=== PATIENT | female | born 1955 | race Caucasian/White ===

== ENCOUNTER 2018-03-10 14:30 | Inpatient (IN) | payer MEDICARE, MEDICAID, SELFPAY ==
[2018-03-10 14:47] VITALS: BMI 31.4
[2018-03-10 14:59] VITALS: BMI 31.5
--- NOTE | 2018-03-10 15:39 | PCM.CONS.GEN ---
Reason for Consult Date of Consultation: 03/10/18 Reason for Consultation: Left subtrochanteric femur fracture. Requested by Dr Mclain History of Present Illness: The patient is a 62 year old F with history of stage IV lung cancer with metastatic disease confirmed to the bone and brain. She is undergoing chemotherapy currently in [place] where her oncologist is at [facility]. Patient is a chronic smoker for the last 40-50 years smokes half to 1 pack a day. Patient states when she was getting off the toilet last evening she had a sudden increase in pain in her thigh. She could no longer stand on it. She tried to sleep it off however she did not have any significant relief of the pain. Patient presents right now with 10 out of 10 pain in the thigh better with immobilization and bed rest worse with motion. Patient reports throbbing pain in the thigh. There is associated swelling and ecchymosis. No numbness and tingling of the leg. She cannot move the leg. She is a very poor historian and the medicine team is working on obtaining further medical records to complete her care here. Patient reports that she regularly ambulates with a cane and occasionally a walker. Past Medical History Allergies No Known Allergies Allergy (Verified 10/05/17 15:21) Home Medications: Ambulatory Orders Medication Instructions Recorded albuterol sulfate HFA 90 1 inh INHALATION DAILY 10/05/17 mcg/actuation aerosol inhaler diclofenac sodium 75 mg 75 mg PO BID 10/05/17 tablet,delayed release gabapentin 100 mg capsule 100 mg PO QHS 10/05/17 multivitamin tablet 1 tab PO DAILY 10/05/17 pravastatin 40 mg tablet 40 mg PO QHS 10/05/17 Surgical History: hysterectomy, - - breast lump removal Psychiatric History: - - Patient appears to have some dementia and memory problems likely secondary to metastatic 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 Denies: Chills HEENT: Reports: Difficulty Hearing Cardiovascular: Denies: Chest Pain Respiratory: Reports: Cough, Shortness of breath at rest. Denies: Sputum production Gastrointestinal: Denies: Abdominal Pain, Nausea, Vomiting Genitourinary: Denies: Dysuria Musculoskeletal: Reports: Joint Tenderness, Leg Pain - See HPI Skin: Reports: Dryness Neurological: Denies: Numbness, Tingling Psychiatric: Denies: Anxiety Hematologic/ Lymphatic: Denies: Adenopathy Objective: Left hip x-rays show a subtrochanteric femur fracture with a lytic lesion noted at the site of the fracture - Physical Exam General: Alert, Oriented x3, Cooperative, - - Cachectic appearing female HEENT: Atraumatic Extremities: - - Left lower extremity: Thigh is swollen and ecchymotic. There is noted deformity. Patient demonstrates motor intact dorsiflexion EHL and plantar flexion. Palpable DP pulse. Sensations intact light touch SP/DP/tibial/sural/saphenous nerve distributions. Positive logroll. Pain with range of motion of the leg. Weight: 145 lb 8.081 oz Body Mass Index (BMI) 31.4 Assessment/Plan Left metastatic subtrochanteric femur fracture transverse in nature. 1. Treatment options were discussed with the patient and her family. At this time we discussed cephalo-medullary nail fixation versus nonoperative treatment. Patient states he has 6 months life expectancy. At this time we did recommend surgical stabilization of the subtrochanteric femur fracture for palliative and stabilization reasons. I did discuss with the family certain risks are inherent with surgery including but not limited to blood loss, DVTs, PEs, neurovascular damage, infection, general risk of anesthesia including loss of life. We also discussed nonunion, malunion, hardware failure and re-fractures. Patient demonstrated understanding wishes to proceed with a cephalo-medullary nail. She is able to sign informed consent. 2. Patient is admitted to the medical service medical clearance will be obtained prior to surgery. Currently the plan is for surgery tomorrow afternoon. 3. N.p.o. after midnight 4. Hold DVT prophylaxis tomorrow morning [facility] Office:
--- NOTE | 2018-03-10 15:49 | CON.PCM_ITS ---
Reason for Consult Date of Consultation: 03/10/18 Reason for Consultation: Left subtrochanteric femur fracture. Requested by Dr Mclain History of Present Illness: The patient is a 62 year old F with history of stage IV lung cancer with metastatic disease confirmed to the bone and brain. She is undergoing chemotherapy currently in [place] where her oncologist is at [facility]. Patient is a chronic smoker for the last 40-50 years smokes half to 1 pack a day. Patient states when she was getting off the toilet last evening she had a sudden increase in pain in her thigh. She could no longer stand on it. She tried to sleep it off however she did not have any significant relief of the pain. Patient presents right now with 10 out of 10 pain in the thigh better with immobilization and bed rest worse with motion. Patient reports throbbing pain in the thigh. There is associated swelling and ecchymosis. No numbness and tingling of the leg. She cannot move the leg. She is a very poor historian and the medicine team is working on obtaining further medical records to complete her care here. Patient reports that she regularly ambulates with a cane and occasionally a walker. Past Medical History Allergies No Known Allergies Allergy (Verified 10/05/17 15:21) Home Medications: Ambulatory Orders Medication Instructions Recorded albuterol sulfate HFA 90 1 inh INHALATION DAILY 10/05/17 mcg/actuation aerosol inhaler diclofenac sodium 75 mg 75 mg PO BID 10/05/17 tablet,delayed release gabapentin 100 mg capsule 100 mg PO QHS 10/05/17 multivitamin tablet 1 tab PO DAILY 10/05/17 pravastatin 40 mg tablet 40 mg PO QHS 10/05/17 Surgical History: hysterectomy, - - breast lump removal Psychiatric History: - - Patient appears to have some dementia and memory problems likely secondary to 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 Denies: Chills HEENT: Reports: Difficulty Hearing Cardiovascular: Denies: Chest Pain Respiratory: Reports: Cough, Shortness of breath at rest. Denies: Sputum production Gastrointestinal: Denies: Abdominal Pain, Nausea, Vomiting Genitourinary: Denies: Dysuria Musculoskeletal: Reports: Joint Tenderness, Leg Pain - See HPI Skin: Reports: Dryness Neurological: Denies: Numbness, Tingling Psychiatric: Denies: Anxiety Hematologic/ Lymphatic: Denies: Adenopathy Objective: Left hip x-rays show a subtrochanteric femur fracture with a lytic lesion noted at the site of the fracture - Physical Exam General: Alert, Oriented x3, Cooperative, - - Cachectic appearing female HEENT: Atraumatic Extremities: - - Left lower extremity: Thigh is swollen and ecchymotic. There is noted deformity. Patient demonstrates motor intact dorsiflexion EHL and plantar flexion. Palpable DP pulse. Sensations intact light touch SP/DP/tibial /sural/saphenous nerve distributions. Positive logroll. Pain with range of motion of the leg. Weight: 145 lb 8.081 oz Body Mass Index (BMI) 31.4 Assessment/Plan Left metastatic subtrochanteric femur fracture transverse in nature. 1. Treatment options were discussed with the patient and her family. At this time we discussed cephalo-medullary nail fixation versus nonoperative treatment. Patient states he has 6 months life expectancy. At this time we did recommend surgical stabilization of the subtrochanteric femur fracture for palliative and stabilization reasons. I did discuss with the family certain risks are inherent with surgery including but not limited to blood loss, DVTs, PEs, neurovascular damage, infection, general risk of anesthesia including loss of life. We also discussed nonunion, malunion, hardware failure and re- fractures. Patient demonstrated understanding wishes to proceed with a cephalo- medullary nail. She is able to sign informed consent. 2. Patient is admitted to the medical service medical clearance will be obtained prior to surgery. Currently the plan is for surgery tomorrow afternoon. 3. N.p.o. after midnight 4. Hold DVT prophylaxis tomorrow morning [facility] Office:
--- NOTE | 2018-03-10 16:03 | PCA ---
Sent dottie chavez a request for medical records
[2018-03-10 16:14] VITALS: RESP 20
--- NOTE | 2018-03-10 16:22 | PCM.HP.STD ---
<Felix Martinez - Last Filed: 03/10/18 16:22> Problem List (1) Hip fracture Status: Acute (2) Lung cancer Status: Chronic History of Present Illness Date of Admission: 03/10/18 Chief Complaint: left hip pain The patient is a 62 year old F with a hx of lung cancer stage IV currently on chemo last dose 4 days ago with mets to the brain s/p brain radiation, bone, and kidney mets who presents to the hospital from [place] [facility] with a left hip fracture. This occurred last night. She was attempting to get out of the shower and as she turned she heard a bang and suddenly developed left hip pain 10/10 in severity. She denies falling or striking her leg. Her is debilitated so she waited until this morning to come to the ER as a friend could help her. She continues to have 10/10 pain even at rest without moving and has limited ROM of her left leg. Sensation is intact. She reportedly was given 6 months to live without treatment - this was diagnosed this past february. She currently cannot remember her doctors' names or what medical problems she has or what meds she takes. She receives chemo at [facility]. She is on O2 but not complaining of dyspnea - she does not use O2 at home. She has a dry cough. Up to this point she ambulated with a walker at home. [] Past Medical History Past Medical History (Chronic Problems): Chronic Problems (Last Updated 10/05/17 @ 15:27 by Yamilex Maldonado) Lung cancer (Chronic) Hx of hysterectomy (Chronic) History of lumpectomy of right breast (Chronic) Insomnia (Chronic) Peripheral neuropathy (Chronic) Benign neoplasm of left breast (Chronic) Osteoarthritis (Chronic) Allergies No Known Allergies Allergy (Verified 10/05/17 15:21) Home Medications: Ambulatory Orders Medication Instructions Recorded albuterol sulfate HFA 90 1 inh INHALATION DAILY 10/05/17 mcg/actuation aerosol inhaler diclofenac sodium 75 mg 75 mg PO BID 10/05/17 tablet,delayed release gabapentin 100 mg capsule 100 mg PO QHS 10/05/17 multivitamin tablet 1 tab PO DAILY 10/05/17 pravastatin 40 mg tablet 40 mg PO QHS 10/05/17 Surgical History: hysterectomy, - - breast lump removal Psychiatric History: - - Patient appears to have some dementia and memory problems likely secondary to metastatic 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 cancer 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: Spouse/ Significant Other Smoking Status: Current every day smoker Tobacco Use: Cigarettes Alcohol: Occasional Drugs: None - *Family History Maternal History Items: No pertinent history Paternal History Items: No pertinent history Review of Systems Constitutional: Denies: Chills, Fever, Weight Change HEENT: Denies: Head Aches, Sinus Congestion, Sinus Drainage Cardiovascular: Denies: Chest Pain, Palpitations Respiratory: Denies: Cough, Shortness of breath at rest, Sputum production Gastrointestinal: Denies: Abdominal Pain, Nausea, Vomiting Genitourinary: Denies: Dysuria Musculoskeletal: Reports: - - left hip pain 08/12. Denies: Joint Pain, Joint Tenderness Skin: Denies: Rash, Wounds Neurological: Denies: Numbness, Tingling, Focal weakness Psychiatric: Denies: Anxiety, Depression, Homicidal Ideations, Suicidal Ideations Hematologic/ Lymphatic: Denies: Easy Bruising, Easy Bleeding VTE Information - Inpt Only VTE Present on Admission: No VTE Mechan Device Prophylaxis: SCD's VTE Pharm Prophylaxis ordered?: No Reason prophylaxis not ordered:: Medical Contraindication Patient Problems: Active and Suspected Problems (Last Updated 10/05/17 @ 15:27 by Yamilex Maldonado) Hip fracture (Acute) Femur fracture, left (Acute) - Physical Exam General: Alert, Oriented x3, Cooperative, - - cachectic, appears older than stated age. HEENT: Atraumatic, PERRLA, EOMI, Normocephalic Neck: Supple, No JVD, Negative Carotid Bruits Lungs: Clear to auscultation, Normal air movement Cardiovascular: Regular rate, No murmurs Abdomen: Bowel Sounds Present, Soft, Non Tender Extremities: No edema, Capillary Refill Less than 3 Seconds Skin: No rashes, No breakdown Musculoskeletal: No Tenderness to Palpation of Joints or Extremities, - - swelling left hip. limited rom LLE 2/2 pain. Sensation intact. Neurological: Cranial nerves II-XII grossly intact Psych/Mental Status: Normal Affect, Appropriate, Alert and oriented to time, place, person, mood and affect Weight: 66 kg Body Mass Index (BMI) 31.4 Assessment/Plan Active and Suspected Problems (Last Updated 10/05/17 @ 15:27 by Yamilex Maldonado) Hip fracture (Acute) Femur fracture, left (Acute) 1. Left subtrochanteric femur fracture in abscence of trauma in pt with known mets to bone - suspect pathologic. Dr. Munroe to take patient to surgery with possible bx. She will require PTOT and custodial after surgery. 2. Stage IV lung ca with mets to brain, bone, kidney. Check AM labs. Get records from [facility]. Pt cannot remember who her oncologist is. Last chemo last 4 days ago. Prior brain rads. Dx was made in february this year. Prognosis is very poor. 3. Nicotine abuse - 40-50 years. still smokes 1/2-1ppd ppd. Aerosols, O2 prn. IS. 4. Pt otherwise not able to remember her medical hx. Request made for records to be obtained. DVT ppx: SCDs DC planning: SNF This patient was seen by Felix Martinez PA-C under the supervision of Doctor Aileen. <Linwood Gallagher - Last Filed: 03/10/18 17:19> Problem List (1) Femur fracture, left Status: Acute (2) Lung cancer Status: Chronic (3) Hx of hysterectomy Status: Chronic (4) History of lumpectomy of right breast Status: Chronic (5) Insomnia Status: Chronic (6) Peripheral neuropathy Status: Chronic (7) Benign neoplasm of left breast Status: Chronic (8) Osteoarthritis Status: Chronic History of Present Illness The patient is a 62 year old F who felt a pop when she got out of the shower. Patient presented to [facility] and was found to have a right femur fracture. Patient has stage IV lung cancer with brain metastases. Patient was just diagnosed with lung cancer 1 month ago today. Patient wants to do everything. Patient wants to have surgery. Patient was seen in consultation by Dr. Munroe and is planning on doing a stabilization procedure on the with an intramedullary guillaume. Concern for this fracture given that the mechanism of injury was none at this is likely a pathologic fracture. 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: Spouse/ Significant Other Smoking Status: Current every day smoker Tobacco Use: Cigarettes Alcohol: Occasional Drugs: None - *Family History Maternal History Items: - - No lung cancer Paternal History Items: - - No lung cancer Review of Systems Constitutional: Denies: Chills, Fever, Weight Change HEENT: Denies: Head Aches, Sinus Congestion, Sinus Drainage Cardiovascular: Denies: Chest Pain, Palpitations Respiratory: Denies: Cough, Shortness of breath at rest, Sputum production Gastrointestinal: Denies: Abdominal Pain, Nausea, Vomiting Genitourinary: Denies: Dysuria Musculoskeletal: Reports: -. Denies: Joint Pain, Joint Tenderness Skin: Denies: Rash, Wounds Neurological: Denies: Focal weakness, Numbness, Tingling Psychiatric: Denies: Anxiety, Depression, Homicidal Ideations, Suicidal Ideations Hematologic/ Lymphatic: Denies: Easy Bruising, Easy Bleeding VTE Information - Inpt Only VTE Present on Admission: No VTE Mechan Device Prophylaxis: SCD's VTE Pharm Prophylaxis ordered?: No Reason prophylaxis not ordered:: Medical Contraindication - Physical Exam General: Alert, Oriented x3, Cooperative, - HEENT: Atraumatic, PERRLA, EOMI, Normocephalic Neck: No JVD, Negative Hepatojugular Reflux Lungs: Clear to auscultation, Normal air movement, No rhonchi, No wheeze Cardiovascular: Regular rate, Regular Rhythm, Normal S1, Normal S2, No murmurs Abdomen: Bowel Sounds Present, Soft, Non Tender Extremities: No edema, No Calf Tenderness Skin: No rashes, No breakdown Musculoskeletal: No Tenderness to Palpation of Joints or Extremities, - Neurological: Cranial nerves II-XII grossly intact Psych/Mental Status: Normal Affect, Appropriate Vital Signs Temp Pulse Resp BP Pulse Ox 37.2 C 87 20 H 145/67 H 98 03/10/18 16:45 03/10/18 16:45 03/10/18 16:45 03/10/18 16:45 03/10/18 16:45 Oxygen Flow Rate (L/min) 2 Oxygen Delivery Method Nasal Cannula Weight: 66 kg Body Mass Index (BMI) 31.4 Assessment/Plan Pt seen and examined independently. Agree with the above note by the physician pediatric physical therapy assistant. 1. Left femur fracture: Mechanism of recurrences happen when the patient just moved her leg when getting out of the shower. There is no fall. This is likely a pathologic fracture. Patient seen in consultation by Dr. Munroe, plan is for intramedullary guillaume on the . Pain control in the meantime. Patient's grandson asked if there is anything else that could be done outside of surgery. I told him the only other option would be for hospice and the patient has expressed steadfastly that she wants to do everything. Patient states that she specifically wants to have the surgery as well. 2. Stage IV lung cancer: Unknown type but would favor small cell. His records are over at [facility]. Patient wishes to follow-up with her oncologist at [facility]. Patient has been given a prognosis of 6-12 months with treatment. Discussed with patient's [id number] and grandson at bedside. Patient overall has a poor prognosis given her stage IV lung cancer. The ORIF of her femur can serve as palliation to help her with pain and also mobility though patient will certainly will be limited afterwards. Advanced care planning: Discussed with the patient. Patient wishes to be full code. Code Visit Inpatient E&M: 45724 Init Hosp L3
--- NOTE | 2018-03-10 16:44 | HP.PCM_ITS ---
<Felix Martinez - Last Filed: 03/10/18 16:22> Problem List (1) Hip fracture Status: Acute (2) Lung cancer Status: Chronic History of Present Illness Date of Admission: 03/10/18 Chief Complaint: left hip pain The patient is a 62 year old F with a hx of lung cancer stage IV currently on chemo last dose 4 days ago with mets to the brain s/p brain radiation, bone, and kidney mets who presents to the hospital from [facility] with a left hip fracture. This occurred last night. She was attempting to get out of the shower and as she turned she heard a bang and suddenly developed left hip pain 10/10 in severity. She denies falling or striking her leg. Her is debilitated so she waited until this morning to come to the ER as a friend could help her. She continues to have 10/10 pain even at rest without moving and has limited ROM of her left leg. Sensation is intact. She reportedly was given 6 months to live without treatment - this was diagnosed this past february. She currently cannot remember her doctors' names or what medical problems she has or what meds she takes. She receives chemo at [facility]. She is on O2 but not complaining of dyspnea - she does not use O2 at home. She has a dry cough. Up to this point she ambulated with a walker at home. [] Past Medical History Past Medical History (Chronic Problems): Chronic Problems (Last Updated 10/05/17 @ 15:27 by Yamilex Maldonado) Lung cancer (Chronic) Hx of hysterectomy (Chronic) History of lumpectomy of right breast (Chronic) Insomnia (Chronic) Peripheral neuropathy (Chronic) Benign neoplasm of left breast (Chronic) Osteoarthritis (Chronic) Allergies No Known Allergies Allergy (Verified 10/05/17 15:21) Home Medications: Ambulatory Orders Medication Instructions Recorded albuterol sulfate HFA 90 1 inh INHALATION DAILY 10/05/17 mcg/actuation aerosol inhaler diclofenac sodium 75 mg 75 mg PO BID 10/05/17 tablet,delayed release gabapentin 100 mg capsule 100 mg PO QHS 10/05/17 multivitamin tablet 1 tab PO DAILY 10/05/17 pravastatin 40 mg tablet 40 mg PO QHS 10/05/17 Surgical History: hysterectomy, - - breast lump removal Psychiatric History: - - Patient appears to have some dementia and memory problems likely secondary to metastatic brain cancer [employer] FINISHER History: spontaneous Lives: Spouse/ Significant Other Smoking Status: Current every day smoker Tobacco Use: Cigarettes Alcohol: Occasional Drugs: None - *Family History Maternal History Items: No pertinent history Paternal History Items: No pertinent history Review of Systems Constitutional: Denies: Chills, Fever, Weight Change HEENT: Denies: Head Aches, Sinus Congestion, Sinus Drainage Cardiovascular: Denies: Chest Pain, Palpitations Respiratory: Denies: Cough, Shortness of breath at rest, Sputum production Gastrointestinal: Denies: Abdominal Pain, Nausea, Vomiting Genitourinary: Denies: Dysuria Musculoskeletal: Reports: - - left hip pain 08/12. Denies: Joint Pain, Joint Tenderness Skin: Denies: Rash, Wounds Neurological: Denies: Numbness, Tingling, Focal weakness Psychiatric: Denies: Anxiety, Depression, Homicidal Ideations, Suicidal Ideations Hematologic/ Lymphatic: Denies: Easy Bruising, Easy Bleeding VTE Information - Inpt Only VTE Present on Admission: No VTE Mechan Device Prophylaxis: SCD's VTE Pharm Prophylaxis ordered?: No Reason prophylaxis not ordered:: Medical Contraindication Patient Problems: Active and Suspected Problems (Last Updated 10/05/17 @ 15:27 by Yamilex Maldonado ) Hip fracture (Acute) Femur fracture, left (Acute) - Physical Exam General: Alert, Oriented x3, Cooperative, - - cachectic, appears older than stated age. HEENT: Atraumatic, PERRLA, EOMI, Normocephalic Neck: Supple, No JVD, Negative Carotid Bruits Lungs: Clear to auscultation, Normal air movement Cardiovascular: Regular rate, No murmurs Abdomen: Bowel Sounds Present, Soft, Non Tender Extremities: No edema, Capillary Refill Less than 3 Seconds Skin: No rashes, No breakdown Musculoskeletal: No Tenderness to Palpation of Joints or Extremities, - - swelling left hip. limited rom LLE 2/2 pain. Sensation intact. Neurological: Cranial nerves II-XII grossly intact Psych/Mental Status: Normal Affect, Appropriate, Alert and oriented to time, place, person, mood and affect Weight: 66 kg Body Mass Index (BMI) 31.4 Assessment/Plan Active and Suspected Problems (Last Updated 10/05/17 @ 15:27 by Yamilex Maldonado ) Hip fracture (Acute) Femur fracture, left (Acute) 1. Left subtrochanteric femur fracture in abscence of trauma in pt with known mets to bone - suspect pathologic. Dr. Munroe to take patient to surgery with possible bx. She will require PTOT and shelter after surgery. 2. Stage IV lung ca with mets to brain, bone, kidney. Check AM labs. Get records from [facility]. Pt cannot remember who her oncologist is. Last chemo last 4 days ago. Prior brain rads. Dx was made in february this year. Prognosis is very poor. 3. Nicotine abuse - 40-50 years. still smokes 1/2-1ppd ppd. Aerosols, O2 prn. IS. 4. Pt otherwise not able to remember her medical hx. Request made for records to be obtained. DVT ppx: SCDs DC planning: SNF This patient was seen by Felix Martinez PA-C under the supervision of Doctor Aileen. <Linwood Gallagher - Last Filed: 03/10/18 17:19> Problem List (1) Femur fracture, left Status: Acute (2) Lung cancer Status: Chronic (3) Hx of hysterectomy Status: Chronic (4) History of lumpectomy of right breast Status: Chronic (5) Insomnia Status: Chronic (6) Peripheral neuropathy Status: Chronic (7) Benign neoplasm of left breast Status: Chronic (8) Osteoarthritis Status: Chronic History of Present Illness The patient is a 62 year old F who felt a pop when she got out of the shower. Patient presented to [facility] and was found to have a right femur fracture. Patient has stage IV lung cancer with brain metastases. Patient was just diagnosed with lung cancer 1 month ago today. Patient wants to do everything. Patient wants to have surgery. Patient was seen in consultation by Dr. Munroe and is planning on doing a stabilization procedure on the with an intramedullary guillaume. Concern for this fracture given that the mechanism of injury was none at this is likely a pathologic fracture. 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 History: spontaneous Lives: Spouse/ Significant Other Smoking Status: Current every day smoker Tobacco Use: Cigarettes Alcohol: Occasional Drugs: None - *Family History Maternal History Items: - - No lung cancer Paternal History Items: - - No lung cancer Review of Systems Constitutional: Denies: Chills, Fever, Weight Change HEENT: Denies: Head Aches, Sinus Congestion, Sinus Drainage Cardiovascular: Denies: Chest Pain, Palpitations Respiratory: Denies: Cough, Shortness of breath at rest, Sputum production Gastrointestinal: Denies: Abdominal Pain, Nausea, Vomiting Genitourinary: Denies: Dysuria Musculoskeletal: Reports: -. Denies: Joint Pain, Joint Tenderness Skin: Denies: Rash, Wounds Neurological: Denies: Focal weakness, Numbness, Tingling Psychiatric: Denies: Anxiety, Depression, Homicidal Ideations, Suicidal Ideations Hematologic/ Lymphatic: Denies: Easy Bruising, Easy Bleeding VTE Information - Inpt Only VTE Present on Admission: No VTE Mechan Device Prophylaxis: SCD's VTE Pharm Prophylaxis ordered?: No Reason prophylaxis not ordered:: Medical Contraindication - Physical Exam General: Alert, Oriented x3, Cooperative, - HEENT: Atraumatic, PERRLA, EOMI, Normocephalic Neck: No JVD, Negative Hepatojugular Reflux Lungs: Clear to auscultation, Normal air movement, No rhonchi, No wheeze Cardiovascular: Regular rate, Regular Rhythm, Normal S1, Normal S2, No murmurs Abdomen: Bowel Sounds Present, Soft, Non Tender Extremities: No edema, No Calf Tenderness Skin: No rashes, No breakdown Musculoskeletal: No Tenderness to Palpation of Joints or Extremities, - Neurological: Cranial nerves II-XII grossly intact Psych/Mental Status: Normal Affect, Appropriate Vital Signs Temp Pulse Resp BP Pulse Ox 37.2 C 87 20 H 145/67 H 98 03/10/18 16:45 03/10/18 16:45 03/10/18 16:45 03/10/18 16:45 03/10/18 16:45 Oxygen Flow Rate (L/min) 2 Oxygen Delivery Method Nasal Cannula Weight: 66 kg Body Mass Index (BMI) 31.4 Assessment/Plan Pt seen and examined independently. Agree with the above note by the physician emergency medicine physician assistant. 1. Left femur fracture: Mechanism of recurrences happen when the patient just moved her leg when getting out of the shower. There is no fall. This is likely a pathologic fracture. Patient seen in consultation by Dr. Munroe, plan is for intramedullary guillaume on the . Pain control in the meantime. Patient' s grandson asked if there is anything else that could be done outside of surgery. I told him the only other option would be for hospice and the patient has expressed steadfastly that she wants to do everything. Patient states that she specifically wants to have the surgery as well. 2. Stage IV lung cancer: Unknown type but would favor small cell. His records are over at [facility]. Patient wishes to follow-up with her oncologist at [facility]. Patient has been given a prognosis of 6-12 months with treatment. Discussed with patient's [id number] and grandson at bedside. Patient overall has a poor prognosis given her stage IV lung cancer. The ORIF of her femur can serve as palliation to help her with pain and also mobility though patient will certainly will be limited afterwards. Advanced care planning: Discussed with the patient. Patient wishes to be full code. Code Visit Inpatient E&M: 68870 Init Hosp L3
[2018-03-10 16:45] VITALS: BP 145/67; PULSE 87; RESP 20; TEMP 37.2; O2SAT 98
[2018-03-10] MEDS: Morphine 4 MG/ML Syringe IV (17:14)
--- NOTE | 2018-03-10 20:40 | NURSING ---
Pt's son, Chris Dinh, called in to check on his mom. He was aware that she was having surgery tomorrow and also wanted to know how she was doing. He was able to assist me with the supplemental surgical history since he said the pt's is a little confused. He did not think the would be able to give us the information we need. Chris was already aware of his mother's situation and surgery time was given. He stated he would notify the of the surgery time as well.
[2018-03-10 20:44] VITALS: BP 136/79; PULSE 85; RESP 20; TEMP 37.1; O2SAT 97
[2018-03-10] MEDS: oxyCODONE 5 MG Tablet PO (21:06)
[2018-03-10] MEDS: Gabapentin 100 MG Capsule PO (21:07)
[2018-03-11] VITALS (16 sets, daily range): BP systolic 118–156; BP diastolic 62–86; PULSE 80–107; RESP 15–20; TEMP 36.6–37.8; O2SAT 94–100; BMI 31.4; BMI 31.5
--- NOTE | 2018-03-11 | HIP_PTH ---
PATIENT: QUIANA PEREZ LOC: MS3 U#:[id number] AGE/SX: 62/F ROOM: WA313 RE03/10/[address]: Dr. Meena Bravo DO : 1955 BED: 1 DIS: 03/13/2018 SPEC #: [id number] RECD: 03/12/18 08:59 STATUS: JARAD REQ #: [id number] VINNIE: 03/11/18 00:[address]: Henri Munroe DEPT: SURGICAL PATHOLOGY RECD BY: Lasha Anguiano ENTERED: 03/12/18 08:59 SP TYPE: TOTAL HIP OTHR DR: DO Dr. Linwood Landers DO Dr. Steven Widmer, MD Tissues: Hip, NOS Procedures: Decalcification bone/plaque Surgery Specimen Level III Comments: @ Ordering doctor for DEC edited from to DR.SWIDME Bermeo by LAI at 03/12/18 1154 @ Ordering doctor for SUIV edited from to @ by LAI at 03/12/18 1154 @ Submitting doctor edited from to @ by LAI at 03/12/18 1154 HEADER OPERATION: Rodding, Intertan nail [employer]hew PRE-OP DIAGNOSIS: Subtrochanteric fracture of left femur TISSUE SUBMITTED: Left femoral bone biopsy and reamings MICROSCOPIC DIAGNOSIS Left femoral bone and reamings, biopsy: Fragments of fibroadipose tissue, fibroconnective tissue, skeletal muscle tissue and bone with focal area of hemorrhage, clinically subtrochanteric fracture of left femur. SANDRA:fede 03/18/18 MICROSCOPIC DESCRIPTION Slides are reviewed. GROSS DESCRIPTION Received is one container designated left femoral bone. The specimen consists of multiple irregular fragments of somewhat gritty and soft tissue that is light mcgregor in color measuring 2.5 x 2 x 0.2 cm. No distinct bone is identified. The specimen is submitted in its entirety in one cassette after decalcification. / AM:fede 03/12/18 TC:5 CPT: 59949, 30611
[2018-03-11] MEDS: HYDROmorphone 0.5 MG/0.5 ML SYRINGE IV ×3 (00:36→08:58)
--- NOTE | 2018-03-11 05:55 | EKG12_ITS ---
Test Reason : AM EKG Blood Pressure : / mmHG Vent. Rate : 091 BPM Atrial Rate : 091 BPM P-R Int : 134 ms QRS Dur : 072 ms QT Int : 360 ms P-R-T Axes : 090 034 068 degrees QTc Int : 442 ms Normal sinus rhythm Normal ECG No previous ECGs available Confirmed by HEATHER WATTS, CLAUDINE ([id number]), material expeditor ANTONIO CRUZ ([id number] on 03/20/2018 3:03:57 PM Referred By: Linwood Gallagher Confirmed By:CLAUDINE ROMERO MD
[2018-03-11 06:18] LABS: Anion Gap 6 (5-15); BUN 16 mg/dL (7-18); BUN/Creat Ratio 28.9 RATIO (10-20); Calcium,Total 8.8 mg/dL (8.5-10.1); Chloride 104 mmol/L (98-107); Creatinine, Serum 0.55 mg/dL (0.55-1.02); EST Glomerular Filtration Rate 117 mL/min (>60); Est Glom Filt Rate - Afr Amer 142 mL/min (>60); Estimated Creatinine Clearance 107.67 ml/min; Glucose 87 mg/dL (74-106); Potassium 3.9 mmol/L (3.5-5.1); Sodium Level 142 mmol/L (136-145)
[2018-03-11 06:23] LABS: Absolute Lymphocyte Count 0.55 X10^3/ul (0.83-4.51); Absolute Neutrophil Count 3.9 X10^3/uL (2.0-7.7); Basophil# 0.01 X10^3/uL; Basophil% 0.2 % (0-1); Eosinophil# 0.12 X10^3/uL; Eosinophils% 2.5 % (0-5); Hematocrit 24.6 % (37-47); Hemoglobin 7.9 g/dl (12.0-15.0); Lymphocyte # 0.55 X10^3/ul (4.0); Lymphocyte % 11.7 % (19-41); Mean Corp Hgb Conc 32.1 g/gl (32-36); Mean Corpuscular Hgb 31.5 pg (27.0-32.0); Mean Platelet Vol. 10.2 fl (6.2-12.0); Monocyte# 0.14 X10^3/uL; Neutrophil # 3.89 X10^3/uL (2.7-7.7); Neutrophil % 82.6 % (47-70); Platelet Count 215 K/mm3 (150-450); RBC Distribution Width CV 16.5 % (11.6-14.6); RBC Distribution Width SD 56.6 fl (35.1-43.9); Red Blood Count 2.51 M/mm3 (4.2-5.4); White Blood Count 4.7 K/mm3 (4.4-11.0)
[2018-03-11 06:24] LABS: Differential Indicated SCAN CRITERIA MET; POSITIVE COUNT NO; POSITIVE DIFFERENTIAL YES; POSITIVE MORPHOLOGY NO
--- NOTE | 2018-03-11 07:57 | PN_ITS ---
Patient Problems: Active and Suspected Problems (Last Updated 10/05/17 @ 15:27 by Yamilex Maldonado ) Hip fracture (Acute) Femur fracture, left (Acute) Subjective: Patient is a 62-year-old female with a history of tobacco dependence, OA and stage IV lung cancer currently receiving chemo at [facility] (last dose on 03/06/2018) with mets to the brain , bone and kidney who was transferred to [facility] from [facility] ED for a left femur fracture which is likely a pathologic fracture. She did not fall and there was no trauma. The lung CA was diagnosed in February of 2018. She was seen in consultation by Dr. Munroe and after discussion with the patient and the family the decision was made to proceed with a cephalo-medullary nail for pain relief and stabilization. She is afebrile currently with stable vital signs. She is 95-97% saturated on a 2 L nasal cannula. Hemoglobin today is 7.9 with normochromic normocytic indices and an increased RDW at 16.5. Lites are within normal limits and the BUN is 16 with a creatinine of 0.55. She was seen an examined before and after surgery. She is confused and can not tell me the year, date, month, her age or what surgery she is going to have. she told her she broke her clavicle. - Physical Exam General: Cooperative, Confused, Disoriented, - - She is awake HEENT: Atraumatic, Normocephalic Oral: Dry Mucosa Neck: Supple, No JVD, Trachea Midline Lungs: Clear to auscultation, No rhonchi, No wheeze, No rales, Diminished Cardiovascular: Regular rate, Regular Rhythm, Normal S1, Normal S2, No murmurs, No Ectopic Activity, No rub noted, No Gallop Abdomen: Bowel Sounds Present, Soft, Non Tender, Non-Distended Extremities: No clubbing, No cyanosis, No edema, No Calf Tenderness Skin: No rashes Musculoskeletal: No Muscle Wasting Neurological: Cranial nerves II-XII grossly intact, Neuro grossly intact Vital Signs Temp Pulse Resp BP Pulse Ox 98.6 F 85 18 130/86 H 95 03/11/18 04:16 03/11/18 04:16 03/11/18 04:16 03/11/18 04:16 03/11/18 04:16 Oxygen Flow Rate (L/min) 2 Oxygen Delivery Method Nasal Cannula Weight: 145 lb 8.081 oz Body Mass Index (BMI) 31.4 Intake and Output for Last 24 Hours 03/09/18 03/10/18 03/11/18 23:59 23:59 23:59 Intake Total 665 / 665 Balance 665 / 665 Laboratory Tests Past 24 Hrs 03/11/18 03/11/18 03/11/18 05:10 05:10 05:10 WBC 4.7 RBC 2.51 L Hgb 7.9 L Hct 24.6 L MCV 98.0 MCH 31.5 MCHC 32.1 RDW 16.5 H RDW Differential 56.6 H Plt Count 215 MPV 10.2 Immature Gran % (Auto) 0.000 Neut % (Auto) 82.6 H Lymph % (Auto) 11.7 L Hall % (Auto) 3.0 Eos % (Auto) 2.5 Baso % (Auto) 0.2 Absolute Neuts (auto) 3.9 Absolute Lymphs (auto) 0.55 L Total Counted Not Reportable Sodium 142 Potassium 3.9 Chloride 104 Carbon Dioxide 32.0 Anion Gap 6 BUN 16 Creatinine 0.55 Estim Creat Clear Calc 107.67 Est GFR (MDRD) Af Amer 142 Est GFR (MDRD) Non-Af 117 BUN/Creatinine Ratio 28.9 H Glucose 87 Calcium 8.8 Blood Type O POSITIVE Antibody Screen NEGATIVE Medical Necessity - Tobacco Use Smoking Status: Current every day smoker Tobacco Use: Cigarettes Assessment/Plan Active and Suspected Problems (Last Updated 10/05/17 @ 15:27 by Yamilex Maldonado ) Hip fracture (Acute) Femur fracture, left (Acute) Impressions 1. pathologic left hip fracture 2. Stage IV lung cancer with metastases to the brain and bone and kidney. 3. Tobacco dependence 4. Peripheral neuropathy. 5. Previous lumpectomy right breast-benign 6. Osteoarthritis 7. Hyperlipidemia Transfuse with 2 units PRBC's since HGB is 7.9 and there will be blood loss from surgery. Check a liver profile, mag, phos, PT/PTT now Add a dose of Vanco 15mg/kg 1 hour preop because she has been in the hospital in the past few 2 months and she is getting chemo in a health care facility. Check HH post op She is at very high risk for VTE in light of active cancer so will need to use Lovenox for DVT prophylaxis post-op Met with her and a friend. She has been very confused at home. She is back to the way she was prior to radiation to the brain. He is debilitated and will not be able to care for her at home unless she can walk. PT will be difficult due to the confusion and poor performance with PT today. suspect she will need to go to SNF. The is asking about a hospice consult. Her oncologist is Dr. Paz at [facility]. I will call Dr. Paz in the AM and discuss prognosis - janie in light of the pathologic fracture and confusion. Recheck lab in the AM Code Visit Inpatient E&M: 55089 Subs Hosp L3
[2018-03-11 08:06] LABS: International Normalized Ratio 0.9; Partial Thromboplast Time 31.3 Seconds (24.1-36.2); Prothrombin Time (Protime)PT. 12.5 SECONDS (11.7-14.9)
[2018-03-11 08:14] LABS: AST(SGOT) 43 U/L (15-37); Alanine Aminotransfer ALT/SGPT 35 U/L (13-56); Albumin, Serum 2.7 g/dL (3.2-5.0); Alkaline Phosphatase 121 U/L (45-117); Bilirubin, Direct 0.12 mg/dL (0.00-0.30); Globulin 3.6 g/dL (2.2-4.2); Magnesium 1.9 mg/dL (1.6-2.6); Phosphorus 3.9 mg/dL (2.5-4.9); Protein, Total 6.3 g/dL (6.4-8.2)
[2018-03-11] MEDS: 0.9% NaCl Peripheral Flush Adult/Peds IV (08:58)
--- NOTE | 2018-03-11 10:18 | CASEMGMT ---
Social Work Assessment Referral Date: 03/11/2018 Date of Assessment: 03/11/2018 Reason for consult: Hip fracture Informant: JORGE LUIS Personal Status: SW met with pt to complete initial assessment. SW introduced self and role at [facility]. Pt is alert and orientated x3. Pt states that she lives with her in a one story home. Pt states that there are three steps to enter the home. Pt states that she was previously independent with ADLs including steps. Pt states that her main supports are her and her two sons. Pt states that currently receives chemotherapy at [facility]. DME include cane and walker. Pt is currently on O2 but states that she doesn't wear it at home. Pt states that her plan is to return home at discharge. JORGE LUIS explained to pt that typically after hip surgery pt will go to SNF short term for rehabilitation. Pt states that if needed she would be willing to go to SNF for rehabilitation. SW provided pt with list of SNF that accept her insurance. Pt states that it would be better to talk to her about possible placement. SW will keep following along with pt to determine discharge needs and will talk with the as needed to determine discharge needs. Pt is scheduled to have surgery today. Pt denied additional needs or concerns at this time. Substance Abuse Hx: Pt denied any substance abuse hx. H+P states that pt is currently an everyday smoker. Mental Health Hx: Pt denied. Plan: TBD. Possible SNF placement short term for rehabilitation. Adelita Martines FOUNDER CHAIRMAN AND CHIEF CREATIVE OFFICER, DAIRY SPECIALIST
[2018-03-11 10:26] LABS: Bacteria 0 SEEN /hpf (None Seen); Mucous, Urine 0 SEEN /hpf (<or=2+); Red Blood Cells-Urine 0 SEEN /hpf (0-5); Squamous Epithelial Cells - UA 0 SEEN /hpf (5-10); White Blood Cells 0 SEEN /hpf (0-5)
[2018-03-11 10:30] LABS: Color, Urine Yellow (Yellow); Glucose, Dipstick Normal (Normal); Ketone-Dipstick Negative (Negative); Leukocyte Esterase-Dipstick Negative /ul (Negative); Nitrite-Dipstick Negative (Negative); Occult Blood-Urine Negative /ul (Negative); Protein-Dipstick 15 mg/dl (Negative); Specific Gravity, Urine 1.015 (1.002-1.030); Urine Bilirubin Dipstick Negative (Negative); Urine Clarity Clear (Clear); Urine Urobilinogen Normal (Normal)
[2018-03-11] MEDS: Furosemide 20 MG/2 ML VIAL IV (11:25)
--- NOTE | 2018-03-11 11:43 | PCM.OPRPT ---
Report of Operation Date of Procedure: 03/11/18 Pre-Operative Diagnosis: Pathologic subtrochanteric hip fracture left hip, transverse Post-Operative Diagnosis: Pathologic subtrochanteric hip fracture left hip, transverse Surgery/Procedure Performed:: 1. Left hip cephalo-medullary nail. 2. Left femur bone biopsy Description of Surgical Findings:: Stable reduction was obtained ceramics machine operator: None Type of Anesthesia:: General Anesthesiologist: Aren Lopez Special Medications: 2 g Ancef, 15 mg/kg vancomycin Specimen's removed: Left femoral lesion was biopsied and reamings were sent Estimated Blood Loss (mL): 100 Fluids Replaced: 600 ml crystalloid Description of Procedure: Components used: 1. [employer] InterTAN nail 34 cm, 10 mm 2. [employer] InterTAN lag screw 90mm 3. [employer]hew 35 millimeter interlocking screw in the dynamic screw hole Brief history operative indications: 62-year-old female presented yesterday with a pathologic fracture to her left subtrochanteric area. Patient has known metastatic disease from the lungs both her brain and bones. After extensive discussion including risk and benefits which include but are not limited to blood loss, PEs, DVTs, neurovascular damage, nonunions, malunions and screw cut out patient has elected to proceed with a left cephalo-medullary nail. Procedure: On the date of the procedure the patient's L hip was marked in the preoperative area and patient was taken back to the operating room. Anesthetic was administered and patient was transferred to the table were all bony prominence identified well-padded and the ipsilateral arm was placed across the chest. Patient was then translated down to the perineal post and the operative leg was placed in the boot while the nonoperative leg was lowered and secured. The operative leg was placed in traction and internal rotation and live fluoroscopy was used to verify adequate reduction. The operative leg was then prepped in a sterile fashion with chlorhexidine while the surgeon scrubbed. Upon reentering the room the operative extremity was draped in the standard orthopedic fashion. Skin incision was marked and a timeout was called. Everyone agreed upon the side, the site, the procedure be performed, patient's identity, and antibiotics given. Skin incision was made and the position of the entry guidepin was verified using live fluoroscopy. Once we were satisfied with our position the pin was advanced in the soft tissue protector was placed over the pin. The entry reamer was then advanced into the proximal portion of the femur. A guidewire was placed down the intramedullary canal and fluoroscopy was used to verify that the anterior cortex had not been breached distally as well as satisfactory distal positioning. We then used live fluoroscopy to verify the length of the nail and a Melendrez [employer] Nephew InterTAN 34 cm by 10 mm 125? hip nail was selected. The 11.5 mm reamer was then passed. The nail was then attached to the personal consultant and inserted into the intramedullary canal. The appropriate depth was verified and the skin incision for the lag screw was made. The lag screw guidepin was then placed under live fluoroscopy and when a satisfactory position was obtained the length of the screw was measured and the standard technique to drill for the lag screws was performed. The anti-rotation bar was used. At this time a 90 lag screw was selected with its corresponding compression screw. The lag screw was then passed and traction was left off the leg. The compression screw was then passed and the proximal locking bolt was tightened down. The final position of the lag screw was verified under fluoroscopy. Attention was then turned to the distal portion of the nail and a perfect kenaitze technique was used to locate the distal interlocking screw and a 35mm distal interlocking screw was placed using this technique. Live fluoroscopy was used to verify the position of the interlocking screw and the final position of the hip components. Once we were satisfied with our positioning the wounds were copiously irrigated out with normal saline skin was closed with 2-0 Vicryl and marvin for final skin closure. A sterile dressing was placed with Xeroform. Patient was then awakened by anesthesia transferred from the fracture table back to their hospital bed and transferred to the PACU for recovery. Postoperative plan: Patient will be 50% partial weightbearing of the left lower extremity. Lovenox for DVT prophylaxis with knee-high stockings. Follow up in the office in 2 weeks. Grafts/Implants Used: Mel[employer] Nephew InterTAN nail - Complications none - Admit VTE Documentation VTE Present on Admission: No VTE Mechan Device Prophylaxis: SCD's, Thigh High ZANE Hose VTE Pharm Prophylaxis ordered?: Yes
--- NOTE | 2018-03-11 11:47 | OP.PCM_ITS ---
Report of Operation Date of Procedure: 03/11/18 Pre-Operative Diagnosis: Pathologic subtrochanteric hip fracture left hip, transverse Post-Operative Diagnosis: Pathologic subtrochanteric hip fracture left hip, transverse Surgery/Procedure Performed:: 1. Left hip cephalo-medullary nail. 2. Left femur bone biopsy Description of Surgical Findings:: Stable reduction was obtained casting director: None Type of Anesthesia:: General Anesthesiologist: Aren Lopez Special Medications: 2 g Ancef, 15 mg/kg vancomycin Specimen's removed: Left femoral lesion was biopsied and reamings were sent Estimated Blood Loss (mL): 100 Fluids Replaced: 600 ml crystalloid Description of Procedure: Components used: 1. [employer] InterTAN nail 34 cm, 10 mm 2. [employer] InterTAN lag screw 90mm 3. [employer] 35 millimeter interlocking screw in the dynamic screw hole Brief history operative indications: 62-year-old female presented yesterday with a pathologic fracture to her left subtrochanteric area. Patient has known metastatic disease from the lungs both her brain and bones. After extensive discussion including risk and benefits which include but are not limited to blood loss, PEs, DVTs, neurovascular damage , nonunions, malunions and screw cut out patient has elected to proceed with a left cephalo-medullary nail. Procedure: On the date of the procedure the patient's L hip was marked in the preoperative area and patient was taken back to the operating room. Anesthetic was administered and patient was transferred to the table were all bony prominence identified well-padded and the ipsilateral arm was placed across the chest. Patient was then translated down to the perineal post and the operative leg was placed in the boot while the nonoperative leg was lowered and secured. The operative leg was placed in traction and internal rotation and live fluoroscopy was used to verify adequate reduction. The operative leg was then prepped in a sterile fashion with chlorhexidine while the surgeon scrubbed. Upon reentering the room the operative extremity was draped in the standard orthopedic fashion. Skin incision was marked and a timeout was called. Everyone agreed upon the side, the site, the procedure be performed, patient's identity, and antibiotics given. Skin incision was made and the position of the entry guidepin was verified using live fluoroscopy. Once we were satisfied with our position the pin was advanced in the soft tissue protector was placed over the pin. The entry reamer was then advanced into the proximal portion of the femur. A guidewire was placed down the intramedullary canal and fluoroscopy was used to verify that the anterior cortex had not been breached distally as well as satisfactory distal positioning. We then used live fluoroscopy to verify the length of the nail and a Mel[employer]rez [employer]hew InterTAN 34 cm by 10 mm 125? hip nail was selected. The 11.5 mm reamer was then passed. The nail was then attached to the instrumental teacher and inserted into the intramedullary canal. The appropriate depth was verified and the skin incision for the lag screw was made. The lag screw guidepin was then placed under live fluoroscopy and when a satisfactory position was obtained the length of the screw was measured and the standard technique to drill for the lag screws was performed. The anti-rotation bar was used. At this time a 90 lag screw was selected with its corresponding compression screw. The lag screw was then passed and traction was left off the leg. The compression screw was then passed and the proximal locking bolt was tightened down. The final position of the lag screw was verified under fluoroscopy. Attention was then turned to the distal portion of the nail and a perfect [place] technique was used to locate the distal interlocking screw and a 35mm distal interlocking screw was placed using this technique. Live fluoroscopy was used to verify the position of the interlocking screw and the final position of the hip components. Once we were satisfied with our positioning the wounds were copiously irrigated out with normal saline skin was closed with 2-0 Vicryl and marvin for final skin closure. A sterile dressing was placed with Xeroform. Patient was then awakened by anesthesia transferred from the fracture table back to their hospital bed and transferred to the PACU for recovery. Postoperative plan: Patient will be 50% partial weightbearing of the left lower extremity. Lovenox for DVT prophylaxis with knee-high stockings. Follow up in the office in 2 weeks. Grafts/Implants Used: Melend[employer]hew InterTAN nail - Complications none - Admit VTE Documentation VTE Present on Admission: No VTE Mechan Device Prophylaxis: SCD's, Thigh High ZANE Hose VTE Pharm Prophylaxis ordered?: Yes
--- NOTE | 2018-03-11 12:00 | RAD_ITS ---
STUDY: X-RAY - LEFT FEMUR REASON FOR STUDY: Female, 62 years old. ORIF of the proximal left femoral fracture. TECHNIQUE: Radiological exam, femur, minimum 2 views COMPARISON: None. FINDINGS: Intraoperative imaging provided for ORIF of the proximal right femoral fracture utilizing intramedullary guillaume fixation and decompressive screw device. There is good alignment. RAD/Femur Min 2 Views IMPRESSION: Intraoperative imaging for satisfactory reduction of the proximal left femoral fracture. Electronically Signed: Uriel Almazan MD at 14:31 EDT Tel [phone], Service support ,
--- NOTE | 2018-03-11 13:40 | RAD_ITS ---
STUDY: X-RAY - PELVIS AND LEFT HIP REASON FOR EXAM: Female, 62 years old. Post ORIF of a proximal left femoral fracture. TECHNIQUE: Radiological exam, hip, unilateral, with pelvis when performed; 2 or 3 views. COMPARISON: None. FINDINGS: The patient is status post left intramedullary guillaume and compression screw fixation of the pathological fracture involving the proximal shaft of the left femur. Satisfactory reduction. Destruction of the right iliac bone at the level of the acetabulum suggestive of metastatic disease. Postoperative soft tissue changes. RAD/Hip Min 2 Views (Portable) IMPRESSION: Status post satisfactory reduction of the pathological fracture in the proximal shaft of the left femur with the postoperative soft tissue changes. Electronically Signed: Uriel Almazan MD at 14:33 EDT Tel [phone], Service support ,
--- NOTE | 2018-03-11 16:24 | RAD_ITS ---
STUDY: X-RAY CHEST REASON FOR EXAM: Female, 62 years old. Short of breath. History of lung cancer. TECHNIQUE: Single AP portable view of the chest. COMPARISON: None. FINDINGS: Exam limited by rotation to the right. Poorly defined areas of increased density are seen in the mid and lower right lung. These could be pleural plaques and/or scarring from previous treatments, but since there are no prior studies, CT scan is recommended. Normal lung volumes. Left lung is clear. No effusions. The lungs are clear and expanded. There is no demonstrated pleural abnormality. Normal size heart. Normal mediastinum and noni. Normal visualized pulmonary arteries. Normal visualized aortic arch and descending thoracic aorta. Normal visualized thoracic spine. Normal visualized ribs, clavicles, and shoulders. There is no demonstrated abnormality of the visualized soft tissue structures of the upper abdomen. RAD/Chest 1 View (Portable) IMPRESSION: Poorly defined areas of increased density are seen in the mid and lower right lung. These could be pleural plaques and/or scarring from previous treatments, but since there are no prior studies, CT scan is recommended. Electronically Signed: Ian Saleh MD at 18:59 EDT , Service support ,
[2018-03-11 17:07] LABS: Hematocrit 29.6 % (37-47); Hemoglobin 9.8 g/dl (12.0-15.0)
[2018-03-11] MEDS: Lactated Ringers 1,000 ML 75 ML IV (18:09)
[2018-03-11] MEDS: Senna/Docusate Sodium 1 Tablet 2 TABLET PO (20:50)
[2018-03-11] MEDS: Gabapentin 100 MG Capsule PO (20:50)
[2018-03-12] VITALS (7 sets, daily range): BP systolic 121–150; BP diastolic 60–84; PULSE 75–85; RESP 15–18; TEMP 36.5–37.1; O2SAT 96–99
[2018-03-12 06:05] LABS: Hematocrit 23.9 % (37-47); Hemoglobin 7.9 g/dl (12.0-15.0); Mean Corp Hgb Conc 33.1 g/gl (32-36); Mean Corpuscular Volume 93.7 fL (81-99); Platelet Count 153 K/mm3 (150-450); RBC Distribution Width CV 15.8 % (11.6-14.6); RBC Distribution Width SD 52.3 fl (35.1-43.9); Red Blood Count 2.55 M/mm3 (4.2-5.4); White Blood Count 4.6 K/mm3 (4.4-11.0)
[2018-03-12 06:06] LABS: Scan Indicated on CBC? Y/N NO
[2018-03-12 06:27] LABS: Anion Gap 6 (5-15); BUN 17 mg/dL (7-18); BUN/Creat Ratio 29.5 RATIO (10-20); Calcium,Total 8.4 mg/dL (8.5-10.1); Chloride 104 mmol/L (98-107); Creatinine, Serum 0.58 mg/dL (0.55-1.02); EST Glomerular Filtration Rate 112 mL/min (>60); Est Glom Filt Rate - Afr Amer 135 mL/min (>60); Glucose 101 mg/dL (74-106); Potassium 3.5 mmol/L (3.5-5.1); Sodium Level 141 mmol/L (136-145)
[2018-03-12] MEDS: Enoxaparin 40 MG/0.4 ML Syringe SC (06:42)
--- NOTE | 2018-03-12 08:36 | PN_ITS ---
Subjective: Postoperative day #1 All events of the past 24 hours have been reviewed T-max is 100?F on 03/11/2018 at 1614. Stable. She is 98% saturated on 2 L nasal cannula. She does not wear oxygen at home. Oral intake on 03/11/2018 was 722 cc. Fluid balance since admission is -347. She is incontinence of urine so this may not be accurate. She was given Lasix in the OR yesterday. White blood cell count is 4.6 and the hemoglobin today is 7.9. Platelets are 153,000. Electrolytes are within normal limits and the BUN is 17 with a creatinine of 0.58. Chest x-ray on 03/11/2018 shows evidence of lung CA with no pleural effusions no suspected infiltrates and no pulmonary vascular congestion. Objective: - Physical Exam General: Cooperative, Confused, Disoriented, - - She is awake HEENT: Atraumatic, Normocephalic Oral: Dry Mucosa Neck: Supple, No JVD, Trachea Midline Lungs: Clear to auscultation, No rhonchi, No wheeze, No rales, Diminished Cardiovascular: Regular rate, Regular Rhythm, Normal S1, Normal S2, No murmurs, No Ectopic Activity, No rub noted, No Gallop Abdomen: Bowel Sounds Present, Soft, Non Tender, Non-Distended Extremities: No clubbing, No cyanosis, No edema, No Calf Tenderness Skin: No rashes Musculoskeletal: No Muscle Wasting Neurological: Cranial nerves II-XII grossly intact, Neuro grossly intact - Physical Exam Vital Signs Temp Pulse Resp BP Pulse Ox 97.9 F 75 15 140/75 H 98 03/12/18 04:20 03/12/18 04:20 03/12/18 04:20 03/12/18 04:20 03/12/18 04:20 Oxygen Flow Rate (L/min) 2 Oxygen Delivery Method Nasal Cannula Weight: 145 lb 8.081 oz Body Mass Index (BMI) 31.4 Intake and Output for Last 24 Hours 03/10/18 03/11/18 03/12/18 23:59 23:59 23:59 Intake Total 2636 / 2636 607 / 607 Output Total 2890 / 2890 700 / 700 Balance -254 / -254 -93 / -93 Laboratory Tests Past 24 Hrs 03/11/18 03/11/18 03/11/18 05:10 10:00 16:55 WBC RBC Hgb 9.8 L Hct 29.6 L MCV MCH MCHC RDW RDW Differential Plt Count MPV Sodium Potassium Chloride Carbon Dioxide Anion Gap BUN Creatinine Estim Creat Clear Calc Est GFR (MDRD) Af Amer Est GFR (MDRD) Non-Af BUN/Creatinine Ratio Glucose Calcium Urine Color Yellow Urine Clarity Clear Urine pH 6.0 Ur Specific [place] 1.015 Urine Protein 15 H Urine Glucose (UA) Normal Urine Ketones Negative Urine Occult Blood Negative Urine Nitrite Negative Urine Bilirubin Negative Urine Urobilinogen Normal Ur Leukocyte Esterase Negative Urine RBC 0 SEEN Urine WBC 0 SEEN Ur Squamous Epith Cells 0 SEEN Urine Bacteria 0 SEEN Urine Mucus 0 SEEN Crossmatch See Detail 03/12/18 03/12/18 05:30 05:30 WBC 4.6 RBC 2.55 L Hgb 7.9 L Hct 23.9 L MCV 93.7 MCH 31.0 MCHC 33.1 RDW 15.8 H RDW Differential 52.3 H Plt Count 153 MPV 10.0 Sodium 141 Potassium 3.5 Chloride 104 Carbon Dioxide 31.0 Anion Gap 6 BUN 17 Creatinine 0.58 Estim Creat Clear Calc 102.10 Est GFR (MDRD) Af Amer 135 Est GFR (MDRD) Non-Af 112 BUN/Creatinine Ratio 29.5 H Glucose 101 Calcium 8.4 L Urine Color Urine Clarity Urine pH Ur Specific [place] Urine Protein Urine Glucose (UA) Urine Ketones Urine Occult Blood Urine Nitrite Urine Bilirubin Urine Urobilinogen Ur Leukocyte Esterase Urine RBC Urine WBC Ur Squamous Epith Cells Urine Bacteria Urine Mucus Crossmatch Medical Necessity - Tobacco Use Smoking Status: Current every day smoker Tobacco Use: Cigarettes Assessment/Plan Impressions 1. pathologic left hip fracture 2. Stage IV lung cancer with metastases to the brain and bone and kidney. 3. Tobacco dependence 4. Peripheral neuropathy. 5. Previous lumpectomy right breast-benign 6. Osteoarthritis 7. Hyperlipidemia 8. 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 Pt is agreeable to a consult with hospice for symptom management discussed with the SW who will make the referral. Recheck the lab in the AM will need to go [place] SNF [place] for PT/OT Will call Dr. Tang in AM about her prognosis
--- NOTE | 2018-03-12 08:52 | PCM.PN.ORT ---
Patient Problems: Active and Suspected Problems (Last Updated 10/05/17 @ 15:27 by Yamilex Maldonado) Hip fracture (Acute) Femur fracture, left (Acute) Subjective: The patient was sitting in bed upon examination. Patient denies any chest pain, shortness of breath, dizziness, lightheadedness, nausea or vomiting, or calf pain. Pain is controlled on medications. No adverse overnight events. Patient sustained a pathologic fracture which required left hip cephalo-medullary nail. Patient has significant history of stage IV lung cancer with metastases to the brain, bone, and kidney. There is discussion with the family with regards to hospice consult. She does follow oncologist at [facility] in [place]. Objective: Vital signs stable and afebrile. Patient is requiring nasal cannula oxygen Patient is able to plantarflex and dorsiflex actively. Sensation is intact to light touch to saphenous, sural, superficial and deep peroneal, and tibial distribution. Dressings are clean dry and intact. The middle dressing is with minimal discharge only. Negative Homans bilaterally, negative signs and symptoms of DVT. - Physical Exam General: Alert, Oriented x3, Cooperative, No apparent distress Vital Signs Temp Pulse Resp BP Pulse Ox 97.9 F 75 15 140/75 H 98 03/12/18 04:20 03/12/18 04:20 03/12/18 04:20 03/12/18 04:20 03/12/18 04:20 Oxygen Flow Rate (L/min) 2 Oxygen Delivery Method Nasal Cannula Weight: 66 kg Body Mass Index (BMI) 31.4 Intake and Output for Last 24 Hours 03/10/18 03/11/18 03/12/18 23:59 23:59 23:59 Intake Total 2636 / 2636 607 / 607 Output Total 2890 / 2890 700 / 700 Balance -254 / -254 -93 / -93 Laboratory Tests Past 24 Hrs 03/11/18 03/11/18 03/11/18 05:10 10:00 16:55 WBC RBC Hgb 9.8 L Hct 29.6 L MCV MCH MCHC RDW RDW Differential Plt Count MPV Sodium Potassium Chloride Carbon Dioxide Anion Gap BUN Creatinine Estim Creat Clear Calc Est GFR (MDRD) Af Amer Est GFR (MDRD) Non-Af BUN/Creatinine Ratio Glucose Calcium Urine Color Yellow Urine Clarity Clear Urine pH 6.0 Ur Specific [place] 1.015 Urine Protein 15 H Urine Glucose (UA) Normal Urine Ketones Negative Urine Occult Blood Negative Urine Nitrite Negative Urine Bilirubin Negative Urine Urobilinogen Normal Ur Leukocyte Esterase Negative Urine RBC 0 SEEN Urine WBC 0 SEEN Ur Squamous Epith Cells 0 SEEN Urine Bacteria 0 SEEN Urine Mucus 0 SEEN Crossmatch See Detail 03/12/18 03/12/18 05:30 05:30 WBC 4.6 RBC 2.55 L Hgb 7.9 L Hct 23.9 L MCV 93.7 MCH 31.0 MCHC 33.1 RDW 15.8 H RDW Differential 52.3 H Plt Count 153 MPV 10.0 Sodium 141 Potassium 3.5 Chloride 104 Carbon Dioxide 31.0 Anion Gap 6 BUN 17 Creatinine 0.58 Estim Creat Clear Calc 102.10 Est GFR (MDRD) Af Amer 135 Est GFR (MDRD) Non-Af 112 BUN/Creatinine Ratio 29.5 H Glucose 101 Calcium 8.4 L Urine Color Urine Clarity Urine pH Ur Specific [place] Urine Protein Urine Glucose (UA) Urine Ketones Urine Occult Blood Urine Nitrite Urine Bilirubin Urine Urobilinogen Ur Leukocyte Esterase Urine RBC Urine WBC Ur Squamous Epith Cells Urine Bacteria Urine Mucus Crossmatch Medical Necessity - Tobacco Use Smoking Status: Current every day smoker Tobacco Use: Cigarettes Assessment/Plan Active and Suspected Problems (Last Updated 10/05/17 @ 15:27 by Yamilex Maldonado) Hip fracture (Acute) Femur fracture, left (Acute) 1. S/P left hip cephalo-medullary nail secondary to pathological sub-trochanteric hip fracture POD #1 2. Continue Pain Medications: Tylenol and OxyIR 3. DVT Prophylaxis: Lovenox, will defer to medicine 4. PT/OT: Partial weightbearing 50% left lower extremity for 6 weeks 5. H & H: 7.9/23.9, asymptomatic, will defer to medicine for possibility of transfusion if needed. 6. Encouraged Incentive Spirometry 7. Continue postoperative medical management per medicine 8. Disposition: Plan will be for discharge to [facility] facility when medically stable and ready for discharge. There is discussion for consult for hospice.
--- NOTE | 2018-03-12 08:58 | PN.ORTHO_ITS ---
Patient Problems: Active and Suspected Problems (Last Updated 10/05/17 @ 15:27 by Yamilex Maldonado ) Hip fracture (Acute) Femur fracture, left (Acute) Subjective: The patient was sitting in bed upon examination. Patient denies any chest pain , shortness of breath, dizziness, lightheadedness, nausea or vomiting, or calf pain. Pain is controlled on medications. No adverse overnight events. Patient sustained a pathologic fracture which required left hip cephalo- medullary nail. Patient has significant history of stage IV lung cancer with metastases to the brain, bone, and kidney. There is discussion with the family with regards to hospice consult. She does follow oncologist at [facility] in [place]. Objective: Vital signs stable and afebrile. Patient is requiring nasal cannula oxygen Patient is able to plantarflex and dorsiflex actively. Sensation is intact to light touch to saphenous, sural, superficial and deep peroneal, and tibial distribution. Dressings are clean dry and intact. The middle dressing is with minimal discharge only. Negative Homans bilaterally, negative signs and symptoms of DVT. - Physical Exam General: Alert, Oriented x3, Cooperative, No apparent distress Vital Signs Temp Pulse Resp BP Pulse Ox 97.9 F 75 15 140/75 H 98 03/12/18 04:20 03/12/18 04:20 03/12/18 04:20 03/12/18 04:20 03/12/18 04:20 Oxygen Flow Rate (L/min) 2 Oxygen Delivery Method Nasal Cannula Weight: 66 kg Body Mass Index (BMI) 31.4 Intake and Output for Last 24 Hours 03/10/18 03/11/18 03/12/18 23:59 23:59 23:59 Intake Total 2636 / 2636 607 / 607 Output Total 2890 / 2890 700 / 700 Balance -254 / -254 -93 / -93 Laboratory Tests Past 24 Hrs 03/11/18 03/11/18 03/11/18 05:10 10:00 16:55 WBC RBC Hgb 9.8 L Hct 29.6 L MCV MCH MCHC RDW RDW Differential Plt Count MPV Sodium Potassium Chloride Carbon Dioxide Anion Gap BUN Creatinine Estim Creat Clear Calc Est GFR (MDRD) Af Amer Est GFR (MDRD) Non-Af BUN/Creatinine Ratio Glucose Calcium Urine Color Yellow Urine Clarity Clear Urine pH 6.0 Ur Specific [place] 1.015 Urine Protein 15 H Urine Glucose (UA) Normal Urine Ketones Negative Urine Occult Blood Negative Urine Nitrite Negative Urine Bilirubin Negative Urine Urobilinogen Normal Ur Leukocyte Esterase Negative Urine RBC 0 SEEN Urine WBC 0 SEEN Ur Squamous Epith Cells 0 SEEN Urine Bacteria 0 SEEN Urine Mucus 0 SEEN Crossmatch See Detail 03/12/18 03/12/18 05:30 05:30 WBC 4.6 RBC 2.55 L Hgb 7.9 L Hct 23.9 L MCV 93.7 MCH 31.0 MCHC 33.1 RDW 15.8 H RDW Differential 52.3 H Plt Count 153 MPV 10.0 Sodium 141 Potassium 3.5 Chloride 104 Carbon Dioxide 31.0 Anion Gap 6 BUN 17 Creatinine 0.58 Estim Creat Clear Calc 102.10 Est GFR (MDRD) Af Amer 135 Est GFR (MDRD) Non-Af 112 BUN/Creatinine Ratio 29.5 H Glucose 101 Calcium 8.4 L Urine Color Urine Clarity Urine pH Ur Specific [place] Urine Protein Urine Glucose (UA) Urine Ketones Urine Occult Blood Urine Nitrite Urine Bilirubin Urine Urobilinogen Ur Leukocyte Esterase Urine RBC Urine WBC Ur Squamous Epith Cells Urine Bacteria Urine Mucus Crossmatch Medical Necessity - Tobacco Use Smoking Status: Current every day smoker Tobacco Use: Cigarettes Assessment/Plan Active and Suspected Problems (Last Updated 10/05/17 @ 15:27 by Yamilex Maldonado ) Hip fracture (Acute) Femur fracture, left (Acute) 1. S/P left hip cephalo-medullary nail secondary to pathological sub- trochanteric hip fracture POD #1 2. Continue Pain Medications: Tylenol and OxyIR 3. DVT Prophylaxis: Lovenox, will defer to medicine 4. PT/OT: Partial weightbearing 50% left lower extremity for 6 weeks 5. H & H: 7.9/23.9, asymptomatic, will defer to medicine for possibility of transfusion if needed. 6. Encouraged Incentive Spirometry 7. Continue postoperative medical management per medicine 8. Disposition: Plan will be for discharge to longterm facility when medically stable and ready for discharge. There is discussion for consult for hospice.
[2018-03-12] MEDS: Calcium (Elemental) 500 MG Tablet 1000 MG PO (09:00)
[2018-03-12] MEDS: Senna/Docusate Sodium 1 Tablet 2 TABLET PO ×2 (09:00→23:08)
[2018-03-12] MEDS: Lactated Ringers 1,000 ML 75 ML IV (09:01)
[2018-03-12] MEDS: Magnesium Hydroxide 30 ML UDC PO (09:04)
[2018-03-12] MEDS: NYSTATIN 500,000 UNIT/5 ML UDC 500000 UNIT PO ×3 (14:13→23:08)
[2018-03-12] MEDS: oxyCODONE 5 MG Tablet PO (16:28)
--- NOTE | 2018-03-12 17:01 | CASEMGMT ---
Social Work Note SW in to speak with pt about discharge plans and possible SNF placement. Pt is agreeable to SNF placement and states that she would like this worker to try [facility] first and then [facility] as a second choice. Per Dr. Bravo pt is also agreeable for Hospice Consult. Pt confirms that she is agreeable to hospice consult. JORGE LUIS explained to pt that this worker will have to send a referral to [facility] to see if they can accept pt and that pre-cert will have to be obtained. Pt states understanding. Pt denied additional needs or concerns. JORGE LUIS faxed referral to [facility] and spoke with Lidya to update her of referral. Lidya called this worker back and is able to accept pt but had some questions and would like this worker to call her back. JORGE LUIS placed a call back to Lidya but she had left for the day already and doesn't have a voicemail. JORGE LUIS will call Lidya tomorrow. JORGE LUIS placed a call to [facility] and spoke with Maryan. Hospice referral was made. JORGE LUIS faxed clinicals to [facility]. This worker informed Maryan that pt's would like to be notified of appointment with hospice so that he can be present for appointment. Maryan states understanding. JORGE LUIS informed Maryan that pt is looking into placement at [facility] after discharge. Plan: Discharge to [facility] pending pre-cert Adelita Martines [employer], [employer]
[2018-03-12] MEDS: Gabapentin 100 MG Capsule PO (23:08)
[2018-03-13] VITALS (13 sets, daily range): BP systolic 115–152; BP diastolic 64–83; PULSE 80–93; RESP 16–18; TEMP 36.5–37.1; O2SAT 94–100
[2018-03-13 06:26] LABS: Hematocrit 22.6 % (37-47); Hemoglobin 7.4 g/dl (12.0-15.0); Mean Corp Hgb Conc 32.7 g/gl (32-36); Mean Corpuscular Hgb 30.8 pg (27.0-32.0); Mean Corpuscular Volume 94.2 fL (81-99); Mean Platelet Vol. 10.1 fl (6.2-12.0); Platelet Count 139 K/mm3 (150-450); RBC Distribution Width CV 15.7 % (11.6-14.6); RBC Distribution Width SD 51.3 fl (35.1-43.9); White Blood Count 3.6 K/mm3 (4.4-11.0)
[2018-03-13 06:27] LABS: Scan Indicated on CBC? Y/N NO
[2018-03-13] MEDS: Enoxaparin 40 MG/0.4 ML Syringe SC (06:28)
[2018-03-13 06:39] LABS: Anion Gap 7 (5-15); BUN 14 mg/dL (7-18); BUN/Creat Ratio 27.8 RATIO (10-20); Calcium,Total 8.4 mg/dL (8.5-10.1); Chloride 101 mmol/L (98-107); EST Glomerular Filtration Rate 131 mL/min (>60); Est Glom Filt Rate - Afr Amer 158 mL/min (>60); Estimated Creatinine Clearance 118.43 ml/min; Glucose 92 mg/dL (74-106); Potassium 3.3 mmol/L (3.5-5.1); Sodium Level 140 mmol/L (136-145)
--- NOTE | 2018-03-13 07:19 | PCM.PN.ORT ---
Patient Problems: Active and Suspected Problems (Last Updated 10/05/17 @ 15:27 by Yamilex Maldonado) Hip fracture (Acute) Femur fracture, left (Acute) Subjective: The patient was sitting in bed upon examination. Patient denies any chest pain, shortness of breath, dizziness, lightheadedness, nausea or vomiting, or calf pain. Pain is controlled on medications. No adverse overnight events. Patient's hemoglobin has dropped to 7.4, she is asymptomatic at this time. Objective: Vital signs stable and afebrile. Patient is requiring nasal cannula oxygen Patient is able to plantarflex and dorsiflex actively. Sensation is intact to light touch to saphenous, sural, superficial and deep peroneal, and tibial distribution. Dressings are clean dry and intact. The middle dressing is with minimal discharge only. Negative Homans bilaterally, negative signs and symptoms of DVT. - Physical Exam General: Alert, Oriented x3, Cooperative, No apparent distress Vital Signs Temp Pulse Resp BP Pulse Ox 98.8 F 80 16 143/69 H 97 03/13/18 02:39 03/13/18 04:00 03/13/18 04:00 03/13/18 02:39 03/13/18 02:39 Oxygen Flow Rate (L/min) 1 Oxygen Delivery Method Room Air Weight: 66 kg Body Mass Index (BMI) 31.4 Intake and Output for Last 24 Hours 03/11/18 03/12/18 03/13/18 23:59 23:59 23:59 Intake Total 2636 / 2636 1411 / 1411 Output Total 2890 / 2890 2600 / 2600 550 / 550 Balance -254 / -254 -1189 / -1189 -550 / -550 Microbiology Past 72 Hours 03/11/18 10:00 Urine Culture - Preliminary Urine Catheter - Boudreaux Culture exhibits no growth. Laboratory Tests Past 24 Hrs 03/13/18 03/13/18 05:58 05:58 WBC 3.6 L RBC 2.40 L Hgb 7.4 L Hct 22.6 L MCV 94.2 MCH 30.8 MCHC 32.7 RDW 15.7 H RDW Differential 51.3 H Plt Count 139 L MPV 10.1 Sodium 140 Potassium 3.3 L Chloride 101 Carbon Dioxide 32.0 Anion Gap 7 BUN 14 Creatinine 0.50 L Estim Creat Clear Calc 118.43 Est GFR (MDRD) Af Amer 158 Est GFR (MDRD) Non-Af 131 BUN/Creatinine Ratio 27.8 H Glucose 92 Calcium 8.4 L Medical Necessity - Tobacco Use Smoking Status: Current every day smoker Tobacco Use: Cigarettes Assessment/Plan Active and Suspected Problems (Last Updated 10/05/17 @ 15:27 by Yamilex Maldonado) Hip fracture (Acute) Femur fracture, left (Acute) 1. S/P left hip cephalo-medullary nail secondary to pathological sub-trochanteric hip fracture POD #2 2. Continue Pain Medications: Tylenol and OxyIR 3. DVT Prophylaxis: Lovenox, will defer to medicine 4. PT/OT: Partial weightbearing 50% left lower extremity for 6 weeks 5. H & H: 7.4/22.6, asymptomatic, will defer to medicine for possibility of transfusion if needed. 6. Encouraged Incentive Spirometry 7. Continue postoperative medical management per medicine 8. Disposition: Orthopedically stable, [facility] medically [facility] and ready for discharge. There is discussion for consult for hospice. Patient will need to schedule two-week postoperative visit with [facility] prior to discharge for x-rays and incision check.
--- NOTE | 2018-03-13 07:22 | PN.ORTHO_ITS ---
Patient Problems: Active and Suspected Problems (Last Updated 10/05/17 @ 15:27 by Yamilex Maldonado ) Hip fracture (Acute) Femur fracture, left (Acute) Subjective: The patient was sitting in bed upon examination. Patient denies any chest pain , shortness of breath, dizziness, lightheadedness, nausea or vomiting, or calf pain. Pain is controlled on medications. No adverse overnight events. Patient 's hemoglobin has dropped to 7.4, she is asymptomatic at this time. Objective: Vital signs stable and afebrile. Patient is requiring nasal cannula oxygen Patient is able to plantarflex and dorsiflex actively. Sensation is intact to light touch to saphenous, sural, superficial and deep peroneal, and tibial distribution. Dressings are clean dry and intact. The middle dressing is with minimal discharge only. Negative Homans bilaterally, negative signs and symptoms of DVT. - Physical Exam General: Alert, Oriented x3, Cooperative, No apparent distress Vital Signs Temp Pulse Resp BP Pulse Ox 98.8 F 80 16 143/69 H 97 03/13/18 02:39 03/13/18 04:00 03/13/18 04:00 03/13/18 02:39 03/13/18 02:39 Oxygen Flow Rate (L/min) 1 Oxygen Delivery Method Room Air Weight: 66 kg Body Mass Index (BMI) 31.4 Intake and Output for Last 24 Hours 03/11/18 03/12/18 03/13/18 23:59 23:59 23:59 Intake Total 2636 / 2636 1411 / 1411 Output Total 2890 / 2890 2600 / 2600 550 / 550 Balance -254 / -254 -1189 / -1189 -550 / -550 Microbiology Past 72 Hours 03/11/18 10:00 Urine Culture - Preliminary Urine Catheter - Boudreaux Culture exhibits no growth. Laboratory Tests Past 24 Hrs 03/13/18 03/13/18 05:58 05:58 WBC 3.6 L RBC 2.40 L Hgb 7.4 L Hct 22.6 L MCV 94.2 MCH 30.8 MCHC 32.7 RDW 15.7 H RDW Differential 51.3 H Plt Count 139 L MPV 10.1 Sodium 140 Potassium 3.3 L Chloride 101 Carbon Dioxide 32.0 Anion Gap 7 BUN 14 Creatinine 0.50 L Estim Creat Clear Calc 118.43 Est GFR (MDRD) Af Amer 158 Est GFR (MDRD) Non-Af 131 BUN/Creatinine Ratio 27.8 H Glucose 92 Calcium 8.4 L Medical Necessity - Tobacco Use Smoking Status: Current every day smoker Tobacco Use: Cigarettes Assessment/Plan Active and Suspected Problems (Last Updated 10/05/17 @ 15:27 by Yamilex Maldonado ) Hip fracture (Acute) Femur fracture, left (Acute) 1. S/P left hip cephalo-medullary nail secondary to pathological sub- trochanteric hip fracture POD #2 2. Continue Pain Medications: Tylenol and OxyIR 3. DVT Prophylaxis: Lovenox, will defer to medicine 4. PT/OT: Partial weightbearing 50% left lower extremity for 6 weeks 5. H & H: 7.4/22.6, asymptomatic, will defer to medicine for possibility of transfusion if needed. 6. Encouraged Incentive Spirometry 7. Continue postoperative medical management per medicine 8. Disposition: Orthopedically stable, plan will be for discharge to [facility] facility when medically stable and ready for discharge. There is discussion for consult for hospice. Patient will need to schedule two-week postoperative visit with [facility] prior to discharge for x-rays and incision check.
[2018-03-13] MEDS: Calcium (Elemental) 500 MG Tablet 1000 MG PO (08:55)
--- NOTE | 2018-03-13 09:12 | NURSING ---
LAST TRANSFUSING COMPLETE TIME WAS NOT COMPLETED - SO GAVE A TIME OF 03/11 1300 -THIS RN WAS NOT HERE AT THAT TIME
[2018-03-13] MEDS: NYSTATIN 500,000 UNIT/5 ML UDC 500000 UNIT PO ×3 (10:32→16:57)
[2018-03-13] MEDS: Senna/Docusate Sodium 1 Tablet 2 TABLET PO (10:32)
[2018-03-13] MEDS: oxyCODONE 5 MG Tablet PO (11:30)
--- NOTE | 2018-03-13 12:09 | CASEMGMT ---
Social Work Note JORGE LUIS placed a call to Lidya at [facility], provided answers to Lidya and informed Lidya that Dr. Bravo states that the pt could discharge tomorrow. JORGE LUIS informed Lidya to submit pre-cert. Lidya states that she will submit pre-cert. JORGE LUIS faxed updated clinicals to Lidya at [facility]. If pre-cert is obtained and pt is medically cleared, pt can discharge to [facility] tomorrow. Plan: [facility] pending pre-cert Adelita Martines APPELLATE COURT CLERK, ELECTION JUDGE
--- NOTE | 2018-03-13 12:15 | PN_ITS ---
Patient Problems: Active and Suspected Problems (Last Updated 10/05/17 @ 15:27 by Yamilex Maldonado ) Hip fracture (Acute) Femur fracture, left (Acute) Subjective: Postoperative day #2 Afebrile. Vital signs stable. She is 94-98% saturated on room air. Fair oral intake. She is pancytopenic today with a WBC count of 3.6, hemoglobin of 7.4, platelets of 139,000. Potassium is low at 3.3. BUN is 14 with a creatinine of 0.50. Urine culture had no growth. Objective: - Physical Exam General: Cooperative, Confused, Disoriented, - - She is awake and conversing with me today. she is able to process information better. HEENT: Atraumatic, Normocephalic, alopecia due to chemo Oral: Dry Mucosa Neck: Supple, No JVD, Trachea Midline Lungs: Clear to auscultation, No rhonchi, No wheeze, No rales, Diminished Cardiovascular: Regular rate, Regular Rhythm, Normal S1, Normal S2, No murmurs, No Ectopic Activity, No rub noted, No Gallop Abdomen: Bowel Sounds Present, Soft, Non Tender, Non-Distended Extremities: No clubbing, No cyanosis, No edema, No Calf Tenderness Skin: No rashes Musculoskeletal: No Muscle Wasting Neurological: Cranial nerves II-XII grossly intact, Neuro grossly intact - Physical Exam Vital Signs Temp Pulse Resp BP Pulse Ox 97.8 F 88 16 136/68 H 98 03/13/18 11:01 03/13/18 11:01 03/13/18 11:01 03/13/18 11:01 03/13/18 11:01 Oxygen Flow Rate (L/min) 1 Oxygen Delivery Method Room Air Weight: 145 lb 8.081 oz Body Mass Index (BMI) 31.4 Intake and Output for Last 24 Hours 03/11/18 03/12/18 03/13/18 23:59 23:59 23:59 Intake Total 2636 / 2636 1411 / 1411 400 / 400 Output Total 2890 / 2890 2600 / 2600 550 / 550 Balance -254 / -254 -1189 / -1189 -150 / -150 Microbiology Past 72 Hours 03/11/18 10:00 Urine Culture - Final Urine Catheter - Boudreaux Culture exhibits no growth. Laboratory Tests Past 24 Hrs 03/11/18 03/13/18 03/13/18 05:10 05:58 05:58 WBC 3.6 L RBC 2.40 L Hgb 7.4 L Hct 22.6 L MCV 94.2 MCH 30.8 MCHC 32.7 RDW 15.7 H RDW Differential 51.3 H Plt Count 139 L MPV 10.1 Sodium 140 Potassium 3.3 L Chloride 101 Carbon Dioxide 32.0 Anion Gap 7 BUN 14 Creatinine 0.50 L Estim Creat Clear Calc 118.43 Est GFR (MDRD) Af Amer 158 Est GFR (MDRD) Non-Af 131 BUN/Creatinine Ratio 27.8 H Glucose 92 Calcium 8.4 L Crossmatch See Detail Medical Necessity - Tobacco Use Smoking Status: Current every day smoker Tobacco Use: Cigarettes Assessment/Plan Active and Suspected Problems (Last Updated 10/05/17 @ 15:27 by Yamilex Maldonado ) Hip fracture (Acute) Femur fracture, left (Acute) Impressions 1. pathologic left hip fracture 2. Stage IV lung cancer with metastases to the brain and bone and kidney. 3. Tobacco dependence 4. Peripheral neuropathy. 5. Previous lumpectomy right breast-benign 6. Osteoarthritis 7. Hyperlipidemia 8. 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 Pt is agreeable to a consult with hospice for symptom management discussed with the SW who will make the referral. Continue PT/OT - I suspect she may not be able to walk again because she can not retain the instructions given to her by PT/OT Will recheck the lab in the AM Code Visit Inpatient E&M: 55444 Subs Hosp L2
[2018-03-13] MEDS: Morphine 4 MG/ML Syringe IV (12:59)
--- NOTE | 2018-03-13 18:14 | PCM.DC.SUM ---
Discharge Date and Diagnosis - Problem List Patient Problems: Active and Suspected Problems (Last Updated 10/05/17 @ 15:27 by Yamilex Maldonado) Hip fracture (Acute) Femur fracture, left (Acute) Date of Admission: 03/10/18 Date of Discharge: 03/13/18 - Primary Discharge Diagnosis Active and Suspected Problems (Last Updated 10/05/17 @ 15:27 by Yamilex Maldonado) Pathologic Femur fracture, left (Acute) due to bone metastasis from Lung Cancer Pancytopenia if and likely related to cancer/chemo Anemia secondary to lung cancer, chemotherapy and blood loss from recent hip fracture and surgery Hypokalemia - Secondary Discharge Diagnosis Chronic Problems (Last Updated 10/05/17 @ 15:27 by Yamilex Maldonado) Lung cancer (Chronic) with metastases to brain, bone, liver Hx of hysterectomy (Chronic) History of lumpectomy of right breast (Chronic) Insomnia (Chronic) Peripheral neuropathy (Chronic) Benign neoplasm of left breast (Chronic) Osteoarthritis (Chronic) 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 Electronically Signed: Uriel Almazan MD at 14:31 EDT Tel [phone], Service support , Hip X-Ray 03/11/18 13:40 IMPRESSION: Status post satisfactory reduction of the pathological fracture in the proximal shaft of the left femur with the postoperative soft tissue changes. Electronically Signed: Uriel Almazan MD at 14:33 EDT Tel [phone], Service support , Chest X-Ray 03/11/18 16:24 IMPRESSION: Poorly defined areas of increased density are seen in the mid and lower right lung. These could be pleural plaques and/or scarring from previous treatments, but since there are no prior studies, CT scan is recommended. Electronically Signed: Ian Saleh MD at 18:59 EDT , Service support , Laboratory Tests 03/11/18 03/11/18 03/11/18 05:10 05:10 05:10 WBC 4.7 RBC 2.51 L Hgb 7.9 L Hct 24.6 L MCV 98.0 MCH 31.5 MCHC 32.1 RDW 16.5 H RDW Differential 56.6 H Plt Count 215 MPV 10.2 Immature Gran % (Auto) 0.000 Neut % (Auto) 82.6 H Lymph % (Auto) 11.7 L Cannon % (Auto) 3.0 Eos % (Auto) 2.5 Baso % (Auto) 0.2 Absolute Neuts (auto) 3.9 Absolute Lymphs (auto) 0.55 L Total Counted Not Reportable PT INR APTT Sodium 142 Potassium 3.9 Chloride 104 Carbon Dioxide 32.0 Anion Gap 6 BUN 16 Creatinine 0.55 Estim Creat Clear Calc 107.67 Est GFR (MDRD) Af Amer 142 Est GFR (MDRD) Non-Af 117 BUN/Creatinine Ratio 28.9 H Glucose 87 Calcium 8.8 Phosphorus Magnesium Total Bilirubin Direct Bilirubin AST ALT Alkaline Phosphatase Total Protein Albumin Globulin Urine Color Urine Clarity Urine pH Ur Specific Lowman Urine Protein Urine Glucose (UA) Urine Ketones Urine Occult Blood Urine Nitrite Urine Bilirubin Urine Urobilinogen Ur Leukocyte Esterase Urine RBC Urine WBC Ur Squamous Epith Cells Urine Bacteria Urine Mucus Blood Type O POSITIVE Antibody Screen NEGATIVE Crossmatch 03/11/18 03/11/18 03/11/18 05:10 05:10 05:10 WBC RBC Hgb Hct MCV MCH MCHC RDW RDW Differential Plt Count MPV Immature Gran % (Auto) Neut % (Auto) Lymph % (Auto) Cannon % (Auto) Eos % (Auto) Baso % (Auto) Absolute Neuts (auto) Absolute Lymphs (auto) Total Counted PT 12.5 INR 0.9 APTT 31.3 Sodium Potassium Chloride Carbon Dioxide Anion Gap BUN Creatinine Estim Creat Clear Calc Est GFR (MDRD) Af Amer Est GFR (MDRD) Non-Af BUN/Creatinine Ratio Glucose Calcium Phosphorus 3.9 Magnesium 1.9 Total Bilirubin 0.40 Direct Bilirubin 0.12 AST 43 H ALT 35 Alkaline Phosphatase 121 H Total Protein 6.3 L Albumin 2.7 L Globulin 3.6 Urine Color Urine Clarity Urine pH Ur Specific Lowman Urine Protein Urine Glucose (UA) Urine Ketones Urine Occult Blood Urine Nitrite Urine Bilirubin Urine Urobilinogen Ur Leukocyte Esterase Urine RBC Urine WBC Ur Squamous Epith Cells Urine Bacteria Urine Mucus Blood Type Antibody Screen Crossmatch See Detail 03/11/18 03/11/18 03/12/18 10:00 16:55 05:30 WBC 4.6 RBC 2.55 L Hgb 9.8 L 7.9 L Hct 29.6 L 23.9 L MCV 93.7 MCH 31.0 MCHC 33.1 RDW 15.8 H RDW Differential 52.3 H Plt Count 153 MPV 10.0 Immature Gran % (Auto) Neut % (Auto) Lymph % (Auto) Cannon % (Auto) Eos % (Auto) Baso % (Auto) Absolute Neuts (auto) Absolute Lymphs (auto) Total Counted PT INR APTT Sodium Potassium Chloride Carbon Dioxide Anion Gap BUN Creatinine Estim Creat Clear Calc Est GFR (MDRD) Af Amer Est GFR (MDRD) Non-Af BUN/Creatinine Ratio Glucose Calcium Phosphorus Magnesium Total Bilirubin Direct Bilirubin AST ALT Alkaline Phosphatase Total Protein Albumin Globulin Urine Color Yellow Urine Clarity Clear Urine pH 6.0 Ur Specific Lowman 1.015 Urine Protein 15 H Urine Glucose (UA) Normal Urine Ketones Negative Urine Occult Blood Negative Urine Nitrite Negative Urine Bilirubin Negative Urine Urobilinogen Normal Ur Leukocyte Esterase Negative Urine RBC 0 SEEN Urine WBC 0 SEEN Ur Squamous Epith Cells 0 SEEN Urine Bacteria 0 SEEN Urine Mucus 0 SEEN Blood Type Antibody Screen Crossmatch 03/12/18 03/13/18 03/13/18 05:30 05:58 05:58 WBC 3.6 L RBC 2.40 L Hgb 7.4 L Hct 22.6 L MCV 94.2 MCH 30.8 MCHC 32.7 RDW 15.7 H RDW Differential 51.3 H Plt Count 139 L MPV 10.1 Immature Gran % (Auto) Neut % (Auto) Lymph % (Auto) Cannon % (Auto) Eos % (Auto) Baso % (Auto) Absolute Neuts (auto) Absolute Lymphs (auto) Total Counted PT INR APTT Sodium 141 140 Potassium 3.5 3.3 L Chloride 104 101 Carbon Dioxide 31.0 32.0 Anion Gap 6 7 BUN 17 14 Creatinine 0.58 0.50 L Estim Creat Clear Calc 102.10 118.43 Est GFR (MDRD) Af Amer 135 158 Est GFR (MDRD) Non-Af 112 131 BUN/Creatinine Ratio 29.5 H 27.8 H Glucose 101 92 Calcium 8.4 L 8.4 L Phosphorus Magnesium Total Bilirubin Direct Bilirubin AST ALT Alkaline Phosphatase Total Protein Albumin Globulin Urine Color Urine Clarity Urine pH Ur Specific [place] Urine Protein Urine Glucose (UA) Urine Ketones Urine Occult Blood Urine Nitrite Urine Bilirubin Urine Urobilinogen Ur Leukocyte Esterase Urine RBC Urine WBC Ur Squamous Epith Cells Urine Bacteria Urine Mucus Blood Type Antibody Screen Crossmatch Dr. Torey Munroe-orthopedics Hospice Operations: - - Left hip cephalo-medullary nail and left femur bone biopsy on 03/11/[address] Munroe. Procedures: - - Transfusion of 3 units of packed red blood cells while in hospital Summary of Care Provided: The Patient is a 62-year-old female with a history of tobacco dependence, OA and stage IV lung cancer with metastasis to the bone, kidney and brain who is currently receiving chemo at [facility] (last dose on 03/06/2018) from Dr. Paz from [facility] who was transferred to [facility] from [facility] for a left femur fracture which is likely a pathologic fracture. She did not fall and there was no trauma. She was getting out of the shower, turned and then heard a loud bang. She was seen in consultation by Dr. Munroe and after discussion with the patient and the family the decision was made to proceed with a cephalo-medullary nail for pain relief and stabilization. The surgery was done on 03/11/18 and there were no complications. Her is debilitated himself and did not feel that he would be able to care for her if she could not walk. She has been increasingly confused recently and he feels her quality of life is not good and the prognosis for any significant recovery is poor. She herself confirmed that she would not want resuscitation if she experienced cardiopulmonary arrest. Her oncologist told her she may live 6 months with chemo and radiation and that was in February of 2018 at the time the cancer was first diagnosed. The requested a hospice consult and I discussed this with the patient and she was agreeable. Hospice met with the on 03/13/18 and the decision was made to transfer her to the inpatient hospice facility for symptom management. She was discharged and will be transferred to the hospice facility on 03/13/18. Dr. Munroe was notified of the transfer. This note was generated with [employer] dictation software. It may contain incorrect words, spelling, and punctuation that were not noted in checking the note before signing. Home Medications: Medications to take at Discharge albuterol sulfate HFA 90 mcg/actuation aerosol inhaler 1 inh INHALATION DAILY 10/05/17 diclofenac sodium 75 mg tablet,delayed release 75 mg PO BID 10/05/17 gabapentin 100 mg capsule 100 mg PO QHS 10/05/17 multivitamin tablet 1 tab PO DAILY 10/05/17 pravastatin 40 mg tablet 40 mg PO QHS 10/05/17 Disposition: Hospice Medical Facility Minutes spent on discharge:: 30 Patient Condition:: Poor Medical Necessity - Tobacco Use Smoking Status: Current every day smoker Tobacco Use: Cigarettes Meaningful Use Info Meaningful Use Diagnoses (Choose all that apply): None applicable Code Visit Inpatient E&M: 47840 Disch Hosp
--- NOTE | 2018-03-13 18:30 | DS.PCM_ITS ---
Discharge Date and Diagnosis - Problem List Patient Problems: Active and Suspected Problems (Last Updated 10/05/17 @ 15:27 by Yamilex Maldonado ) Hip fracture (Acute) Femur fracture, left (Acute) Date of Admission: 03/10/18 Date of Discharge: 03/13/18 - Primary Discharge Diagnosis Active and Suspected Problems (Last Updated 10/05/17 @ 15:27 by Yamilex Maldonado ) Pathologic Femur fracture, left (Acute) due to bone metastasis from Lung Cancer Pancytopenia if and likely related to cancer/chemo Anemia secondary to lung cancer, chemotherapy and blood loss from recent hip fracture and surgery Hypokalemia - Secondary Discharge Diagnosis Chronic Problems (Last Updated 10/05/17 @ 15:27 by Yamilex Maldonado) Lung cancer (Chronic) with metastases to brain, bone, liver Hx of hysterectomy (Chronic) History of lumpectomy of right breast (Chronic) Insomnia (Chronic) Peripheral neuropathy (Chronic) Benign neoplasm of left breast (Chronic) Osteoarthritis (Chronic) 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 Electronically Signed: Uriel Almazan MD at 14:31 EDT Tel [phone], Service support , Hip X-Ray 03/11/18 13:40 IMPRESSION: Status post satisfactory reduction of the pathological fracture in the proximal shaft of the left femur with the postoperative soft tissue changes. Electronically Signed: Uriel Almazan MD at 14:33 EDT Tel [phone], Service support , Chest X-Ray 03/11/18 16:24 IMPRESSION: Poorly defined areas of increased density are seen in the mid and lower right lung. These could be pleural plaques and/or scarring from previous treatments, but since there are no prior studies, CT scan is recommended. Electronically Signed: Ian Saleh MD at 18:59 EDT , Service support , Laboratory Tests 03/11/18 03/11/18 03/11/18 05:10 05:10 05:10 WBC 4.7 RBC 2.51 L Hgb 7.9 L Hct 24.6 L MCV 98.0 MCH 31.5 MCHC 32.1 RDW 16.5 H RDW Differential 56.6 H Plt Count 215 MPV 10.2 Immature Gran % (Auto) 0.000 Neut % (Auto) 82.6 H Lymph % (Auto) 11.7 L [place] % (Auto) 3.0 Eos % (Auto) 2.5 Baso % (Auto) 0.2 Absolute Neuts (auto) 3.9 Absolute Lymphs (auto) 0.55 L Total Counted Not Reportable PT INR APTT Sodium 142 Potassium 3.9 Chloride 104 Carbon Dioxide 32.0 Anion Gap 6 BUN 16 Creatinine 0.55 Estim Creat Clear Calc 107.67 Est GFR (MDRD) Af Amer 142 Est GFR (MDRD) Non-Af 117 BUN/Creatinine Ratio 28.9 H Glucose 87 Calcium 8.8 Phosphorus Magnesium Total Bilirubin Direct Bilirubin AST ALT Alkaline Phosphatase Total Protein Albumin Globulin Urine Color Urine Clarity Urine pH Ur Specific [place] Urine Protein Urine Glucose (UA) Urine Ketones Urine Occult Blood Urine Nitrite Urine Bilirubin Urine Urobilinogen Ur Leukocyte Esterase Urine RBC Urine WBC Ur Squamous Epith Cells Urine Bacteria Urine Mucus Blood Type O POSITIVE Antibody Screen NEGATIVE Crossmatch 03/11/18 03/11/18 03/11/18 05:10 05:10 05:10 WBC RBC Hgb Hct MCV MCH MCHC RDW RDW Differential Plt Count MPV Immature Gran % (Auto) Neut % (Auto) Lymph % (Auto) [place] % (Auto) Eos % (Auto) Baso % (Auto) Absolute Neuts (auto) Absolute Lymphs (auto) Total Counted PT 12.5 INR 0.9 APTT 31.3 Sodium Potassium Chloride Carbon Dioxide Anion Gap BUN Creatinine Estim Creat Clear Calc Est GFR (MDRD) Af Amer Est GFR (MDRD) Non-Af BUN/Creatinine Ratio Glucose Calcium Phosphorus 3.9 Magnesium 1.9 Total Bilirubin 0.40 Direct Bilirubin 0.12 AST 43 H ALT 35 Alkaline Phosphatase 121 H Total Protein 6.3 L Albumin 2.7 L Globulin 3.6 Urine Color Urine Clarity Urine pH Ur Specific [place] Urine Protein Urine Glucose (UA) Urine Ketones Urine Occult Blood Urine Nitrite Urine Bilirubin Urine Urobilinogen Ur Leukocyte Esterase Urine RBC Urine WBC Ur Squamous Epith Cells Urine Bacteria Urine Mucus Blood Type Antibody Screen Crossmatch See Detail 03/11/18 03/11/18 03/12/18 10:00 16:55 05:30 WBC 4.6 RBC 2.55 L Hgb 9.8 L 7.9 L Hct 29.6 L 23.9 L MCV 93.7 MCH 31.0 MCHC 33.1 RDW 15.8 H RDW Differential 52.3 H Plt Count 153 MPV 10.0 Immature Gran % (Auto) Neut % (Auto) Lymph % (Auto) [place] % (Auto) Eos % (Auto) Baso % (Auto) Absolute Neuts (auto) Absolute Lymphs (auto) Total Counted PT INR APTT Sodium Potassium Chloride Carbon Dioxide Anion Gap BUN Creatinine Estim Creat Clear Calc Est GFR (MDRD) Af Amer Est GFR (MDRD) Non-Af BUN/Creatinine Ratio Glucose Calcium Phosphorus Magnesium Total Bilirubin Direct Bilirubin AST ALT Alkaline Phosphatase Total Protein Albumin Globulin Urine Color Yellow Urine Clarity Clear Urine pH 6.0 Ur Specific [place] 1.015 Urine Protein 15 H Urine Glucose (UA) Normal Urine Ketones Negative Urine Occult Blood Negative Urine Nitrite Negative Urine Bilirubin Negative Urine Urobilinogen Normal Ur Leukocyte Esterase Negative Urine RBC 0 SEEN Urine WBC 0 SEEN Ur Squamous Epith Cells 0 SEEN Urine Bacteria 0 SEEN Urine Mucus 0 SEEN Blood Type Antibody Screen Crossmatch 03/12/18 03/13/18 03/13/18 05:30 05:58 05:58 WBC 3.6 L RBC 2.40 L Hgb 7.4 L Hct 22.6 L MCV 94.2 MCH 30.8 MCHC 32.7 RDW 15.7 H RDW Differential 51.3 H Plt Count 139 L MPV 10.1 Immature Gran % (Auto) Neut % (Auto) Lymph % (Auto) [place] % (Auto) Eos % (Auto) Baso % (Auto) Absolute Neuts (auto) Absolute Lymphs (auto) Total Counted PT INR APTT Sodium 141 140 Potassium 3.5 3.3 L Chloride 104 101 Carbon Dioxide 31.0 32.0 Anion Gap 6 7 BUN 17 14 Creatinine 0.58 0.50 L Estim Creat Clear Calc 102.10 118.43 Est GFR (MDRD) Af Amer 135 158 Est GFR (MDRD) Non-Af 112 131 BUN/Creatinine Ratio 29.5 H 27.8 H Glucose 101 92 Calcium 8.4 L 8.4 L Phosphorus Magnesium Total Bilirubin Direct Bilirubin AST ALT Alkaline Phosphatase Total Protein Albumin Globulin Urine Color Urine Clarity Urine pH Ur Specific [place] Urine Protein Urine Glucose (UA) Urine Ketones Urine Occult Blood Urine Nitrite Urine Bilirubin Urine Urobilinogen Ur Leukocyte Esterase Urine RBC Urine WBC Ur Squamous Epith Cells Urine Bacteria Urine Mucus Blood Type Antibody Screen Crossmatch Dr. Torey Munroe-orthopedics Hospice Operations: - - Left hip cephalo-medullary nail and left femur bone biopsy on 03/11/[address] Munroe. Procedures: - - Transfusion of 3 units of packed red blood cells while in hospital Summary of Care Provided: The Patient is a 62-year-old female with a history of tobacco dependence, OA and stage IV lung cancer with metastasis to the bone, kidney and brain who is currently receiving chemo at [facility] (last dose on 03/06/2018) from Dr. Paz from [facility] who was transferred to [facility] from [facility] for a left femur fracture which is likely a pathologic fracture. She did not fall and there was no trauma. She was getting out of the shower, turned and then heard a loud bang. She was seen in consultation by Dr. Munroe and after discussion with the patient and the family the decision was made to proceed with a cephalo-medullary nail for pain relief and stabilization. The surgery was done on 03/11/18 and there were no complications. Her is debilitated himself and did not feel that he would be able to care for her if she could not walk. She has been increasingly confused recently and he feels her quality of life is not good and the prognosis for any significant recovery is poor. She herself confirmed that she would not want resuscitation if she experienced cardiopulmonary arrest. Her oncologist told her she may live 6 months with chemo and radiation and that was in February of 2018 at the time the cancer was first diagnosed. The requested a hospice consult and I discussed this with the patient and she was agreeable. Hospice met with the on 03/13/18 and the decision was made to transfer her to the inpatient hospice facility for symptom management. She was discharged and will be transferred to the hospice facility on 03/13/18. Dr. Munroe was notified of the transfer. This note was generated with [employer] dictation software. It may contain incorrect words, spelling, and punctuation that were not noted in checking the note before signing. Home Medications: Medications to take at Discharge albuterol sulfate HFA 90 mcg/actuation aerosol inhaler 1 inh INHALATION DAILY diclofenac sodium 75 mg tablet,delayed release 75 mg PO BID 10/05/17 gabapentin 100 mg capsule 100 mg PO QHS 10/05/17 multivitamin tablet 1 tab PO DAILY 10/05/17 pravastatin 40 mg tablet 40 mg PO QHS 10/05/17 Disposition: Hospice Medical Facility Minutes spent on discharge:: 30 Patient Condition:: Poor Medical Necessity - Tobacco Use Smoking Status: Current every day smoker Tobacco Use: Cigarettes Meaningful Use Info Meaningful Use Diagnoses (Choose all that apply): None applicable Code Visit Inpatient E&M: 62120 Disch Hosp
--- NOTE | 2018-03-13 19:24 | NURSING ---
report called to hospice- gilberto saldivar
== END 2018-03-13 20:12 | disposition hospice, inpatient (51) | DRG 210 ==
PROVIDERS: Specialist; Visit Provider Internal Medicine
PROC: 0QS736Z Reposition Left Upper Femur with Intramedullary Internal Fixation Device, Percutaneous Approach (ICD-10-PCS; CPT 27245; principal; 2018-03-11 11:00)
DX: M84.552A Pathological fracture in neoplastic disease, left femur, initial encounter for fracture (principal); C79.51 Secondary malignant neoplasm of bone; C79.31 Secondary malignant neoplasm of brain; C79.00 Secondary malignant neoplasm of unspecified kidney and renal pelvis; D61.818 Other pancytopenia; D62 Acute posthemorrhagic anemia; G13.1 Other systemic atrophy primarily affecting central nervous system in neoplastic disease; F17.210 Nicotine dependence, cigarettes, uncomplicated; Z79.899 Other long term (current) drug therapy; E87.6 Hypokalemia; G62.9 Polyneuropathy, unspecified; M19.90 Unspecified osteoarthritis, unspecified site; D64.81 Anemia due to antineoplastic chemotherapy; D63.0 Anemia in neoplastic disease; G93.89 Other specified disorders of brain; Y84.2 Radiological procedure and radiotherapy as the cause of abnormal reaction of the patient, or of later complication, without mention of misadventure at the time of the procedure; E78.5 Hyperlipidemia, unspecified
CPT/HCPCS: 36415; 71045; 73502; 73552; 76000; 80048; 80076; 81001; 83735; 84100; 85014; 85018; 85025; 85027; 85610; 85730; 86850; 86900; 86920; 86921; 86922; 87086; 88304; 88305; 88311; 93005; 97163; 97165; 97530; 97535; 99251; 99406; C1713; J7040; J7120; P9016; A4216; G0463; J1940; J2405